=== PATIENT | male | born 1965 | race African-American/Black ===

== ENCOUNTER 2018-02-20 10:51 | Inpatient (IN) ==
[2018-02-20 12:43] LABS: Baso % (Auto) 0.9 % (0.0-2.0); Eos % (Auto) 0.5 % (0.0-4.0); Hematocrit 40.6 % (39.0-51.0); Lymph % (Auto) 28.3 % (9.0-44.0); Mean Corpuscular HGB Conc 34.4 % (32.0-36.0); Mean Corpuscular Hemoglobin 33.6 pg (27.0-34.0); Mean Corpuscular Volume 97.6 fL (80.0-100.0); Mean Platelet Volume 8.5 fL (7.0-11.0); Mono # (Auto) 0.3 th/mm3 (0.0-0.9); Mono % (Auto) 9.4 % (0.0-8.0); Neut # (Auto) 2.2 th/mm3 (1.8-7.7); Neut % (Auto) 60.9 % (16.0-70.0); Platelet Count 128 th/mm3 (150-450); Red Blood Count 4.16 mil/mm3 (4.50-5.90); Red Cell Distribution Width 13.5 % (11.6-17.2); White Blood Count 3.5 th/mm3 (4.0-11.0)
--- NOTE | 2018-02-20 12:52 | ED ---
HPI General Chief Complaint: Psychiatric Symptoms Stated Complaint: Psych eval / SI Time Seen by Provider: 02/20/18 11:08 Source: patient Mode of arrival: ambulatory Limitations: no limitations History of Present Illness HPI Narrative: 52-year-old male presents to the emergency room voluntarily for evaluation of suicidal ideation and depression. Patient states he has constant suicidal ideation and depression and he is constantly fighting with the double. States he is able to block the devil out today. He has a gun and plans to shoot himself. He admits to polysubstance abuse and alcohol abuse. He used to take Wellbutrin but stopped taking it a few months ago. States he has had Debby , crack, and alcohol within the last 24 hours. He was seen yesterday requesting a medication refill for his depression medication and then left AGAINST MEDICAL ADVICE prior to getting his prescription. He reports history of HIV, hypertension, and hepatitis C for which he is noncompliant as well. MD complaint: suicidal ideation and feels depressed Onset (ago): year(s) Duration: intermittent History of same: Yes Relieving factors: none Exacerbating factors: none Context: recent alcohol abuse, recent drug abuse and not taking psychiatric medications Associated psychiatric symptoms: none Associated symptoms: denies other symptoms Treatments prior to arrival: none If self harm: admits thoughts of self harm Related Data Home Medications Medication Instructions Recorded Confirmed amlodipine [Norvasc] 5 mg PO DAILY 02/19/18 02/20/18 bupropion HCl [Wellbutrin SR] 100 mg PO Q12H 02/19/18 02/20/18 Allergies Allergy/AdvReac Type Severity Reaction Status Date / Time Sulfa (Sulfonamide Allergy Hives Verified 02/20/18 11:23 Antibiotics) Review of Systems ROS: all other systems reviewed are negative [facility] Medical History Medical History H/O hepatitis (Acute) Depression (Acute) HTN (hypertension) (Acute) HIV (human immunodeficiency virus infection) (Acute) Social History Social History Substance History: No History of Abuse Smoking Status: Current every day smoker Tobacco Type: Cigarettes How Often Do You Have a Drink Containing Alcohol: 4 or more times a week Recent Travel in [facility] within the Last 8 Weeks: No Recent Out of Country Travel within the Last 8 Weeks: No Substance Abuse Detail Crack/Cocaine: Substance Use Status: Active Route Used Substance Abuse: Inhalation Reason for Use: Get High Marijuana: Substance Use Status: Active Route Used Substance Abuse: Inhalation Reason for Use: Get High 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 Afebrile. Ambulatory. SKIN: Focused skin assessment warm/dry. HEAD: Normocephalic. EYES: No scleral icterus. No injection or drainage. NECK: Supple, trachea midline. No JVD or lymphadenopathy. CARDIOVASCULAR: Regular rate and rhythm without murmurs, gallops, or rubs. RESPIRATORY: Breath sounds equal bilaterally. No accessory muscle use. PSYCHIATRIC: No delusional thought processes. No hallucinations. Flat affect. Agitated. Course Initial Documented Vital Signs Temperature 97.8 F 02/20/18 10:55 Pulse Rate 94 H 02/20/18 10:55 Respiratory Rate 17 02/20/18 10:55 Blood Pressure 143/91 H 02/20/18 10:55 Pulse Oximetry 97 02/20/18 10:55 Last Documented Vital Signs Temperature 98.2 F 02/21/18 05:37 Pulse Rate 58 L 02/21/18 05:37 Respiratory Rate 16 02/21/18 05:37 Blood Pressure 168/98 H 02/21/18 05:37 Pulse Oximetry 100 02/21/18 05:37 Medical Decision Making [facility] Narrative Medical decision making narrative: 52-year-old male presents to the emergency room initially voluntarily for psychiatric evaluation. Upon assessment, patient reports suicidal ideation with plan to shoot himself. He also reports some homicidal ideation. He hears the devil though not at this time. He is noncompliant with his medications and left AGAINST MEDICAL ADVICE yesterday. At this time patient was placed under a Nance act. IV access established basic labs obtained. CBC and CMP are essentially unremarkable. Patient is medically cleared for psychiatric evaluation. Medical Screen Exam Complete: Yes Emergency Medical Condition: Yes Differential Diagnosis Differential Diagnosis: Depression, malingering, suicidal ideation, PTSD Lab Data Result diagrams: 02/20/18 12:20 02/20/18 12:20 Lab Results 02/20/18 02/20/18 02/21/18 Range/Units 12:20 12:20 05:40 WBC 3.5 L (4.0-11.0) th/mm3 RBC 4.16 L (4.50-5.90) mil/mm3 Hgb 14.0 (13.0-17.0) gm/dL Hct 40.6 (39.0-51.0) % MCV 97.6 (80.0-100.0) fL MCH 33.6 (27.0-34.0) pg MCHC 34.4 (32.0-36.0) % RDW 13.5 (11.6-17.2) % Plt Count 128 L (150-450) th/mm3 MPV 8.5 (7.0-11.0) fL Neut % (Auto) 60.9 (16.0-70.0) % Lymph % (Auto) 28.3 (9.0-44.0) % [place] % (Auto) 9.4 H (0.0-8.0) % Eos % (Auto) 0.5 (0.0-4.0) % Baso % (Auto) 0.9 (0.0-2.0) % Neut # (Auto) 2.2 (1.8-7.7) th/mm3 Lymph # (Auto) 1.0 (1.0-4.8) th/mm3 [place] # (Auto) 0.3 (0.0-0.9) th/mm3 Eos # (Auto) 0.0 (0.0-0.4) th/mm3 Baso # (Auto) 0.0 (0.0-0.2) th/mm3 WBC Differential . Differential Comment Auto diff final Sodium 144 (136-145) meq/L Potassium 3.9 (3.5-5.1) meq/L Chloride 109 H (98-107) meq/L Carbon Dioxide 23.4 (21.0-32.0) meq/L Anion Gap 12 (5-15) meq/L BUN 12 (7-18) mg/dL Creatinine 0.98 (0.60-1.30) mg/dL Estimated GFR Greater than 89 (>89) mL/min Random Glucose 120 H (74-106) mg/dL Calcium 7.7 L (8.5-10.1) mg/dL Total Bilirubin 0.5 (0.2-1.0) mg/dL AST 172 H (15-37) U/L ALT 122 H (12-78) U/L Alkaline Phosphatase 63 (45-117) U/L Total Protein 7.8 (6.4-8.2) g/dL Albumin 3.3 L (3.4-5.0) g/dL TSH 0.757 (0.358-3.740) uIU/mL Urine Opiates Screen Neg (Neg) Ur Barbiturates Screen Neg (Neg) Ur Amphetamines Screen Neg (Neg) U Benzodiazepines Scrn Neg (Neg) Urine Cocaine Screen Pos H (Neg) U Cannabinoids Screen Pos H (Neg) Serum Alcohol 122 H (0-5) mg/dL Discharge Plan Discharge Disposition Patient Disposition: 30 Still Patient Discharge Condition Condition: Stable Physicians Team ED Provider: Eva Nance ED Midlevel Provider: Nidia Aguilera Primary Care Provider: UNKNOWN, Rxs /Orders / Referrals /Forms Prescriptions: No Action amlodipine [Norvasc] 5 mg Tablet 5 mg PO DAILY RF: 0 bupropion HCl [Wellbutrin SR] 100 mg Tablet Extended Release 12 Hr 100 mg PO Q12H RF: 0 Status ED Status: Medically Cleared
[2018-02-20 13:06] LABS: Albumin 3.3 g/dL (3.4-5.0); Anion Gap 12 meq/L (5-15); Aspartate Aminotransferase 172 U/L (15-37); Blood Urea Nitrogen 12 mg/dL (7-18); Calcium 7.7 mg/dL (8.5-10.1); Carbon Dioxide 23.4 meq/L (21.0-32.0); Chloride 109 meq/L (98-107); Glomerular Filtration Rate Greater Than 89 mL/min (>89); Glucose,Random 120 mg/dL (74-106); Potassium 3.9 meq/L (3.5-5.1); Sodium 144 meq/L (136-145)
[2018-02-20 13:15] LABS: Alcohol 122 mg/dL (0-5)
[2018-02-20 13:16] LABS: Alanine Aminotransferase 122 U/L (12-78); Alkaline Phosphatase 63 U/L (45-117); Thyroid Stimulating Hormone 0.757 uIU/mL (0.358-3.740); Total Protein 7.8 g/dL (6.4-8.2)
[2018-02-21 06:06] LABS: Amphetamine Screen,Urine Neg (Neg); Barbiturate Screen,Urine Neg (Neg); Cannabinoid Screen,Urine Pos (Neg); Cocaine Screen,Urine Pos (Neg)
[2018-02-21 06:09] LABS: Opiate Screen,Urine Neg (Neg)
--- NOTE | 2018-02-21 13:57 | ED ---
HPI - Psych - General Source: patient Mode of arrival: ambulatory Limitations: no limitations - History of Present Illness MD complaint: suicidal ideation, feels depressed Onset (ago): day(s) Duration: constant, intermittent History of same: Yes Relieving factors: none Exacerbating factors: none, drug use Context: recent alcohol abuse, recent drug abuse, not taking psychiatric medications Associated psychiatric symptoms: depression, suicidal ideation, auditory hallucinations Associated symptoms: denies other symptoms Treatments prior to arrival: none If self harm: admits thoughts of self harm, has plan - General Chief Complaint: Psychiatric Symptoms Stated Complaint: Psych eval / SI Time Seen by Provider: 02/21/18 13:00 - History of Present Illness HPI Narrative: History of Present Illness HPI Narrative: 52-year-old, single, homeless male with history of HIV, hypertension, and hepatitis C, depression, substance use disorder including cocaine, ETOH and cannabis, previous psychiatric hospitalizations, hx of suicide attempt twenty years ago by overdosing, who initially presented voluntarily to ED with complaints of depression, suicidal ideation, voices. He reported that he has a gun and plans to shoot himself. He used to take Wellbutrin but stopped taking it a few months ago. Patient came to the Ed yesterday requesting a refill of Wellbutrin but left AMA prior to getting his prescription. Patient reports he has been noncompliant with his HIV medication as well as his antihypertensive medication. Symptoms have increased over the last several days. EMR is reviewed. No previous contact with [facility] psychiatry Department. Current labs are reviewed. Platelets 128, AST 172, ALT 122. Toxicology is positive for cocaine, cannabinoids. Blood alcohol level is 122. Patient is seen. Alert, oriented, disheveled and malodorous. Affect is blunted. Patient has been isolative and withdrawn. Speech clear, low tone. Answers questions with brief answers and does not elaborate on his answers. Mood depressed with low energy, low appetite, fair sleep pattern, feeling very sad, hopeless and helpless. Suicidal ideation with intent of shooting himself with a gun. Patient tells me he hid the gun before coming to the hospital. Reports auditory hallucinations described as "whispering in my head that I am unable to understand". Attention and concentration are decreased. (Fariha Rodriguez) - Related Data Home Medications Medication Instructions Recorded Confirmed amlodipine [Norvasc] 5 mg PO DAILY 02/19/18 02/20/18 bupropion HCl [Wellbutrin SR] 100 mg PO Q12H 02/19/18 02/20/18 Allergies Allergy/AdvReac Type Severity Reaction Status Date / Time Sulfa (Sulfonamide Allergy Hives Verified 02/20/18 11:23 Antibiotics) [facility] - History History Provided By: Patient - Medical History Medical History: Medical History (Last Updated 02/20/18 @ 11:24 by Magda Peterson) H/O hepatitis (Acute) Depression (Acute) HTN (hypertension) (Acute) HIV (human immunodeficiency virus infection) (Acute) - Tobacco History Tobacco Use In Past 30 Days: No Smoking Status: Current every day smoker Tobacco Type: Cigarettes - Alcohol History How Often Do You Have a Drink Containing Alcohol: 4 or more times a week - Substance Use History Substance History: No History of Abuse - Substance Use Type Crack/Cocaine Status: Active Route Used: Inhalation Reason for Use: Get High Marijuana Status: Active Route Used: Inhalation 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: Active Reason for Use: Get High Opiates Status: Active Route Used: Inhalation Reason for Use: Get High Other Type: POLYSUBSTANCE Status: Active Route Used: By Mouth, Inhalation, Intramuscular, Intravenously Reason for Use: Get High Comment: PATIENT STATES, "I DO WHATEVER I CAN OFTEN I CAN." - Travel History Recent Travel in the [facility] Within the Last 8 Weeks: No Recent Travel Out of the Country Within the Last 8 Weeks: No - Immunization History Tetanus Immunization: Unsure Hx Influenza Vaccine This Season: No Psychiatric History - Psychiatric History Psychiatric Treatment History: History of Psychiatric Treatment, History of Hospitalization in a Psychiatric Facility History of Inpatient Treatment: Yes Firearms in Home: Yes - Psychiatric History Reports began receiving psychiatric treatment approximately 30 years ago. Multiple psychiatric hospitalizations with the last being in [place] couple of months ago. He has been also admitted to a hospital in [place]. One previous suicide attempt 20 years ago by overdose. (Fariha Rodriguez) Physical Exam - General Limitations: no limitations Mental Status Examination Appearance: Disheveled, Malodorous Consciousness: Alert Orientation: x4 Motor Activity: Normal gait Speech: Slow Language: Adequate Fund of Knowledge: Adequate Attention and Concentration: Inadequate Memory: Unremarkable Mood: Sad Affect: Blunt Thought Process & Associations: Intact, Goal directed Thought Content: Hallucinations Hallucination Type: Auditory Delusion Type: None Suicidal Ideation: Yes Suicidal Plan: Yes Suicidal Intention: Yes Homicidal Ideation: No Homicidal Plan: No Homicidal Intention: No Insight: Fair Judgment: Impulsive Initial Documented Vital Signs Temperature 97.8 F 02/20/18 10:55 Pulse Rate 94 H 02/20/18 10:55 Respiratory Rate 17 02/20/18 10:55 Blood Pressure 143/91 H 02/20/18 10:55 Pulse Oximetry 97 02/20/18 10:55 Last Documented Vital Signs Temperature 98.2 F 02/21/18 05:37 Pulse Rate 58 L 02/21/18 05:37 Respiratory Rate 16 02/21/18 05:37 Blood Pressure 168/98 H 02/21/18 05:37 Pulse Oximetry 100 02/21/18 05:37 MDM - Psych - Diagnosis (1) Depressive disorder Status: Acute (2) Substance induced mood disorder Status: Acute (3) Substance abuse Status: Acute - Lab Data Result diagrams: 02/20/18 12:20 02/20/18 12:20 - MDM Narrative Medical decision making narrative: 52-year-old male with history of depression, psychosis, substance use disorder, multiple medical illnesses, noncompliant with psychiatric and medical treatment plan, under an involuntary status after he presented to the hospital and reported suicidal ideation with intent to shoot himself with a gun. Patient also reported feeling like he is in a struggle with the devil and auditory hallucinations. Patient unable to be placed on Karson Marchman list due to medical issues including a low platelet count. Patient at this time requires inpatient psychiatric treatment for further evaluation, safety and stabilization. Will order hospitalist consult for medical follow up. (Fariha Rodriguez) - Lab Data Lab Results 02/20/18 02/20/18 02/21/18 Range/Units 12:20 12:20 05:40 WBC 3.5 L (4.0-11.0) th/mm3 RBC 4.16 L (4.50-5.90) mil/mm3 Hgb 14.0 (13.0-17.0) gm/dL Hct 40.6 (39.0-51.0) % MCV 97.6 (80.0-100.0) fL MCH 33.6 (27.0-34.0) pg MCHC 34.4 (32.0-36.0) % RDW 13.5 (11.6-17.2) % Plt Count 128 L (150-450) th/mm3 MPV 8.5 (7.0-11.0) fL Neut % (Auto) 60.9 (16.0-70.0) % Lymph % (Auto) 28.3 (9.0-44.0) % [place] % (Auto) 9.4 H (0.0-8.0) % Eos % (Auto) 0.5 (0.0-4.0) % Baso % (Auto) 0.9 (0.0-2.0) % Neut # (Auto) 2.2 (1.8-7.7) th/mm3 Lymph # (Auto) 1.0 (1.0-4.8) th/mm3 [place] # (Auto) 0.3 (0.0-0.9) th/mm3 Eos # (Auto) 0.0 (0.0-0.4) th/mm3 Baso # (Auto) 0.0 (0.0-0.2) th/mm3 WBC Differential . Differential Comment Auto diff final Sodium 144 (136-145) meq/L Potassium 3.9 (3.5-5.1) meq/L Chloride 109 H (98-107) meq/L Carbon Dioxide 23.4 (21.0-32.0) meq/L Anion Gap 12 (5-15) meq/L BUN 12 (7-18) mg/dL Creatinine 0.98 (0.60-1.30) mg/dL Estimated GFR Greater than 89 (>89) mL/min Random Glucose 120 H (74-106) mg/dL Calcium 7.7 L (8.5-10.1) mg/dL Total Bilirubin 0.5 (0.2-1.0) mg/dL AST 172 H (15-37) U/L ALT 122 H (12-78) U/L Alkaline Phosphatase 63 (45-117) U/L Total Protein 7.8 (6.4-8.2) g/dL Albumin 3.3 L (3.4-5.0) g/dL TSH 0.757 (0.358-3.740) uIU/mL Urine Opiates Screen Neg (Neg) Ur Barbiturates Screen Neg (Neg) Ur Amphetamines Screen Neg (Neg) U Benzodiazepines Scrn Neg (Neg) Urine Cocaine Screen Pos H (Neg) U Cannabinoids Screen Pos H (Neg) Serum Alcohol 122 H (0-5) mg/dL
[2018-02-21] MEDS ORDERED: LORazepam 1 MG Tablet PO PRN (14:22)
[2018-02-21] MEDS ORDERED: Haloperidol Inj 5 MG/ML Ampul IM PRN (14:22)
[2018-02-21] MEDS ORDERED: Aluminum/Magnesium/Simethacone Susp 30 ML UDC PO PRN (18:08)
[2018-02-21] MEDS ORDERED: Acetaminophen 325 MG Tablet PO PRN (18:08)
[2018-02-22] MEDS: amLODIPine 5 MG Tablet PO SCH ×2 (01:04→08:26)
[2018-02-22 10:05] LABS: Anion Gap 6 meq/L (5-15); Blood Urea Nitrogen 13 mg/dL (7-18); Calcium 7.9 mg/dL (8.5-10.1); Carbon Dioxide 28.9 meq/L (21.0-32.0); Chloride 107 meq/L (98-107); Cholesterol 130 mg/dL (120-200); Glomerular Filtration Rate Greater Than 89 mL/min (>89); Glucose,Random 149 mg/dL (74-106); Potassium 3.7 meq/L (3.5-5.1); Sodium 142 meq/L (136-145)
[2018-02-22 10:07] LABS: Chol/HDL Ratio 2.09 Ratio; HDL Cholesterol 62.1 mg/dL (40.0-60.0); LDL Cholesterol,Calculated 35 mg/dL (0-99); Triglycerides 165 mg/dL (42-150)
--- NOTE | 2018-02-22 11:35 | P.CONIM ---
History of Present Illness Primary Care Provider: UNKNOWN History of Present Illness: 52-year-old male with a history of HIV, hypertension, hepatitis C, cocaine, marijuana, heavy alcohol use depression who is here for suicidal ideation. Patient says he is feeling generally unwell, however says this is because he is depressed. He does report 15 pound unintentional weight loss over the past year she reports not eating enough food.. Patient says he has not taken any of his HIV medications or blood pressure medications over the past year. He reports alcohol binging with drinking a 12 pack of beer about twice a week. He denies any fevers, chills, chest pain, shortness of breath, nausea, vomiting, cough, diarrhea, constipation. Review of Systems All other systems reviewed negative except as stated in HPI PMFSH - History History Provided By: Patient - Medical History Medical History: Medical History (Last Updated 02/20/18 @ 11:24 by Magda Peterson) H/O hepatitis (Acute) Depression (Acute) HTN (hypertension) (Acute) HIV (human immunodeficiency virus infection) (Acute) - Surgical History Surgical History: Surgical History (Last Updated 02/22/18 @ 11:23 by Kartik Kerr MD) No pertinent past surgical history - Family History Family History: Family History (Last Updated 02/22/18 @ 11:23 by Kartik Kerr MD) Father Hypertension Mother Hypertension - Tobacco History Tobacco Use In Past 30 Days: No Smoking Status: Current every day smoker Tobacco Type: Cigarettes - Alcohol History How Often Do You Have a Drink Containing Alcohol: 4 or more times a week - Substance Use History Substance History: No History of Abuse - Substance Use Type Crack/Cocaine Status: Active Route Used: Inhalation Reason for Use: Get High Marijuana Status: Active Route Used: 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 Reason for Use: Get High Opiates Status: Active Route Used: Inhalation Reason for Use: Get High Other Type: POLYSUBSTANCE Status: Active Route Used: By Mouth, Inhalation, Intramuscular, Intravenously Reason for Use: Get High Comment: PATIENT STATES, "I DO WHATEVER I CAN OFTEN I CAN." - Travel History Recent Travel in the [facility] Within the Last 8 Weeks: No Recent Travel Out of the Country Within the Last 8 Weeks: No - Immunization History Tetanus Immunization: Unsure Hx Influenza Vaccine This Season: No Medications and Allergies Active Medications: Active Medications Acetaminophen (Tylenol) 650 mg PO Q4H PRN PRN Reason: Pain 1-5 or Temp >101F Al Hydrox/Mg Hydrox/Simethicone (Mag-Al Plus Susp Liq) 30 ml PO Q6H PRN PRN Reason: DYSPEPSIA Al Hydroxide/Mg Hydroxide (Milk Of Magnesia Liq) 30 ml PO DAILY PRN PRN Reason: CONSTIPATION Amlodipine Besylate (Norvasc) 5 mg PO DAILY [facility] Last Admin: 02/22/18 08:26 Dose: 5 mg Diphenhydramine HCl (Benadryl) 50 mg PO Q6H PRN PRN Reason: For mild anxiety and/or EPS Diphenhydramine HCl (Benadryl Inj) 50 mg IM Q6H PRN PRN Reason: For mild anxiety and/or EPS Diphenhydramine HCl (Benadryl Inj) 50 mg IM HS PRN PRN Reason: INSOMNIA Diphenhydramine HCl (Benadryl) 50 mg PO HS PRN PRN Reason: INSOMNIA Flumazenil (Romazecon Inj) 0.2 mg IV.PUSH Q1M PRN PRN Reason: OVERSEDATION Haloperidol Lactate (Haldol Inj) 1 mg IM Q15M PRN PRN Reason: for severe agitation Hydroxyzine HCl (Atarax) 50 mg PO Q6H PRN PRN Reason: ANXIETY Lorazepam (Ativan) 1 mg PO Q4H PRN PRN Reason: for CIWA 8-10 Lorazepam (Ativan) 2 mg PO Q2H PRN PRN Reason: for CIWA 11-14 Lorazepam (Ativan Inj) 2 mg IM Q2H PRN PRN Reason: for CIWA 11-14 Lorazepam (Ativan Inj) 2 mg IM Q1H PRN PRN Reason: for CIWA 15-20 Lorazepam (Ativan Inj) 2 mg IM Q15M PRN PRN Reason: for CIWA > 20 Lorazepam (Ativan Inj) 1 mg IM Q4H PRN PRN Reason: for CIWA 8-10 Nicotine (Habitrol 21 Mg Patch.24 Hr) 1 patch T-DERMAL DAILY [facility] Last Admin: 02/22/18 08:59 Dose: Not Given Patch Removal (Remove Old Patch) 1 each T-DERMAL HS [facility] Last Admin: 02/22/18 01:03 Dose: Not Given Allergies Allergy/AdvReac Type Severity Reaction Status Date / Time Sulfa (Sulfonamide Allergy Hives Verified 02/20/18 11:23 Antibiotics) Home Medications Medication Instructions Recorded Confirmed Type amlodipine [Norvasc] 5 mg PO DAILY 02/19/18 02/20/18 History bupropion HCl [Wellbutrin SR] 100 mg PO Q12H 02/19/18 02/20/18 History Exam Vital signs: Vital Signs 02/22/18 06:02 02/22/18 11:01 Temperature 97.9 F Pulse Rate 71 51 L Respiratory Rate 18 18 Blood Pressure 139/105 H 139/90 Pulse Oximetry 99 Narrative: GENERAL: Lying in bed sleeping. Wakes up for exam. SKIN: Warm and dry. HEAD: Atraumatic. Normocephalic. EYES: Pupils equal and round. No scleral icterus. No injection or drainage. ENT: No nasal bleeding or discharge. Mucous membranes pink and moist. NECK: Trachea midline. No JVD. CARDIOVASCULAR: Regular rate and rhythm. RESPIRATORY: No accessory muscle use. Clear to auscultation. Breath sounds equal bilaterally. GASTROINTESTINAL: Abdomen soft, non-tender, nondistended. Hepatic and splenic margins not palpable. MUSCULOSKELETAL: Extremities without clubbing, cyanosis, or edema. No obvious deformities. NEUROLOGICAL: Awake and alert. No obvious cranial nerve deficits. Motor grossly within normal limits. Five out of 5 muscle strength in the arms and legs. Normal speech. Results - Labs CBC & Chem 7: 02/20/18 12:20 02/22/18 09:23 Labs: Laboratory Results - last 24 hr 02/22/18 02/22/18 09:23 09:23 Sodium 142 Potassium 3.7 Chloride 107 Carbon Dioxide 28.9 Anion Gap 6 BUN 13 Creatinine 0.84 Estimated GFR Greater than 89 Random Glucose 149 H Calcium 7.9 L Total Creatine Kinase 172 Triglycerides 165 H Cholesterol 130 LDL Cholesterol, Calc 35 HDL Cholesterol 62.1 H Cholesterol/HDL Ratio 2.09 Assessment and Plan - Plan //HIV //Leukopenia -Apparently HIV diagnosed in the . -White count 3.5 on admission. -No signs of infection. = Check CD4 count. Recheck white blood cell count. //Transaminitis = AST 172, ALT 122 on admission. = Likely secondary to history of hepatitis C as well as alcoholism CK normal. We will check INR. Will check liver ultrasound as well as hepatitis panel. //Hypertension. Systolic blood pressures in the 160s. Improved after starting amlodipine. Continue to monitor. //Hyperglycemia. Glucose 149. Could be secondary to cocaine. A1c is pending. //Chronic alcoholism Patient denies withdrawal. We will watch for withdrawal, and start Ativan if necessary. //Tobacco abuse. Cessation counseling provided. //Cocaine and cannabis use Cessation counseling provided. Discussed Condition With: Patient, nurse Discharge Planning: We will continue to follow.
[2018-02-22 13:43] LABS: Hemoglobin A1c 5.3 % (4.3-6.0)
--- NOTE | 2018-02-22 14:23 | ECG ---
Date Performed: 02/21/2018 Time Performed: 21:38:37 PTAGE: 52 years EKG: Sinus rhythm ST ELEVATION CONSIDER REPOLARIZATION ABNORMALITY VS PERICARDITIS INJURY PATTERN MOST LIKELY CLINICAL CORRELATION RECOMMENDED BORDERLINE ECG NO PREVIOUS TRACING DOCTOR: Hernando Mena Interpretating Date/Time 02/22/2018 14:22:11
[2018-02-22 14:56] LABS: Albumin 2.7 g/dL (3.4-5.0); Total Protein 7.1 g/dL (6.4-8.2)
--- NOTE | 2018-02-22 19:06 | P.HPPSY ---
Provisional Diagnosis Admission Date: February 21, 2018 14:22 [place] I.: Major depressive disorder, severe with psychotic features, r/o substance induced mood disorder, r/o schizoaffective disorder Competence Certification of Person's Competence To Provide Express and Informed Consent I have personally examined Mc Amin Jr, a person being served at [facility] on, February 22, 2018 1856. Express and informed consent means consent voluntarily given in writing, by a competent person, after sufficient explanation and disclosure of the subject matter involved to enable the person to make a knowing and willful decision without any element of force, fraud, deceit, duress, or other form of constraint or coercion. This person is 18 years of age or older, is not now known to be incompetent to consent to treatment with a guardian advocate, and does not have a health care surrogate or proxy currently making medical treatment decisions. I have found this person to be one of the following: [xxx] Competent to provide express and informed consent, as defined above, for voluntary admission to this facility and is competent to provide express and informed consent for treatment. He/she has the consistent capacity to make well reasoned, willful, and knowing decisions concerning his or her medical or mental health treatment. The person fully and consistently understands the purpose of the admission for examination/placement and is fully capable of personally exercising all rights assured under [place] Incompetent to provide express and informed consent to voluntary admission, and this is incompetent to provide express and informed consent to treatment. The person must be transferred to involuntary status and a petition for a guardian advocate filed with the Circuit Court. [] Refusing to provide express and informed consent to voluntary admission but is competent to provide express and informed consent for treatment. The person must be discharged or transferred to involuntary status. Form shall be completed within 24 hours of a person's arrival at the receiving facility and filed in the clinical record of each person: 1. Admitted on a voluntary basis 2. Permitted to provide express and informed consent to his/her own treatment 3. Allowed to transfer from involuntary to voluntary status 4. Prior to permitting a person to consent to his or her own treatment after having been previously found incompetent to consent to treatment. History of Present Illness Capacity: Has capacity History of Present Illness: Patient is a 52-year-old -Citizen Of [place] man, single, no children, domiciled alone, unemployed on SSI, with a past psychiatric history of depression, multiple psychiatric admissions, one remote suicide attempt, reports history of self-injurious behavior, with a substance use history of polysubstance use ( Debby, crack, THC, alcohol) who presented to the ED voluntarily for evaluation of depression and suicidal ideation with plan to shoot himself patient was admitted to the inpatient psychiatry for further evaluation and management. Patient was found sitting in day room noted calm and superficially cooperative with interview today. Patient noted to be somewhat irritable throughout interview. Patient state he does not feel well, reports for the past 2 weeks even having low energy, and concentration along with feeling "agitated" with no changes sleep or appetite but noticing having worsening depression for the past couple of days along with auditory hallucinations and visual hallucinations which she believes are secondary to his recent drug use. Patient reports also having suicidal ideations for the past couple of days but denying any homicidal ideation at this time. When asked about factors that contribute to distress and depression he states "I do not know". Patient states feeling interested in engaging in rehabilitation program or sober living facility. Family psychiatric history: Patient denies Past psychiatric history: Previous psychiatric diagnoses of depression, multiple psychiatric admissions, one remote suicide attempt 20 years ago via overdose, reports self-injurious behavior unspecified. Patient denies history of abuse. Patient denies having any outpatient mental provider last time being 1 year ago with previous medication trials include Risperdal, Wellbutrin and quetiapine. Substance use history: Patient reports tobacco use, alcohol use 1-2 times per week along with marijuana and crack cocaine use. When asked about other drug use patient states "I do not know". Past medical history: Hypertension, hep C, HIV Allergies: Sulfas Social history: Single, no children, domiciled alone, but on SSI, patient reports being born and raised in [place]. - Inpatient Certification I certify that the inpatient services were ordered in accordance with Medicare regulations governing the order. This includes certification that hospital inpatient services are reasonable and necessary and in the case of services not specified as inpatient-only under 42 CFR 419.22(n), that they are appropriately provided as inpatient services in accordance to with the 2-midnight benchmark under 43 CFR 412.3(e) I certify that inpatient psychiatric hospital services are medically necessary. Evaluation and treatment and/or diagnostic testing are expected to improve the patient's condition. The patient needs on a daily basis, active treatment furnished directly by or requiring the supervision of inpatient psychiatric facility personnel. Estimated Total Length of Stay (Days): 7 Plans for Post Hospital Care: Not yet determined Review of Systems All other systems reviewed negative except as stated in HPI [facility] - History History Provided By: Patient, Medical Record - Medical History Medical History: Medical History (Last Updated 02/20/18 @ 11:24 by Magda Peterson) H/O hepatitis (Acute) Depression (Acute) HTN (hypertension) (Acute) HIV (human immunodeficiency virus infection) (Acute) - Surgical History Surgical History: Surgical History (Last Updated 02/22/18 @ 11:23 by Kartik Kerr MD) No pertinent past surgical history - Family History Family History: Family History (Last Updated 02/22/18 @ 11:23 by Kartik Kerr MD) Father Hypertension Mother Hypertension - Tobacco History Tobacco Use In Past 30 Days: No Smoking Status: Current every day smoker Tobacco Type: Cigarettes - Alcohol History How Often Do You Have a Drink Containing Alcohol: 4 or more times a week - Substance Use History Substance History: No History of Abuse - Substance Use Type Crack/Cocaine Status: Active Route Used: Inhalation Frequency: las two days Last Used: two days ago Reason for Use: Get High Marijuana Status: Active Route Used: Inhalation Frequency: last two days Last Used: last two days Reason for Use: Get High [employer] Status: Active Route Used: By Mouth Frequency: when i can Last Used: two days ago Reason for Use: Get High Opiates Status: Active Route Used: Inhalation Frequency: when i can Last Used: two days ago Reason for Use: Get High Other Type: POLYSUBSTANCE Status: Active Route Used: By Mouth, Inhalation, Intramuscular, Intravenously Frequency: when i can Last Used: two days ago Reason for Use: Get High Comment: PATIENT STATES, "I DO WHATEVER I CAN OFTEN I CAN." - Travel History Recent Travel in the [facility] Within the Last 8 Weeks: No Recent Travel Out of the Country Within the Last 8 Weeks: No - Immunization History Tetanus Immunization: Unsure Hx Influenza Vaccine This Season: No Quality Measures - Psychiatric History Psychological trauma history: denies Violence risk to others in the last 6 months: low Violence risk to self in the last 6 months: elevated - Substance Abuse History Drug or alcohol use in the past 12 months: see HPI - Patient Strengths Patient's strengths (minimum of 2): verbal and communicative Medications and Allergies Active Medications: Active Medications Acetaminophen (Tylenol) 650 mg PO Q4H PRN PRN Reason: Pain 1-5 or Temp >101F Al Hydrox/Mg Hydrox/Simethicone (Mag-Al Plus Susp Liq) 30 ml PO Q6H PRN PRN Reason: DYSPEPSIA Al Hydroxide/Mg Hydroxide (Milk Of Magnesia Liq) 30 ml PO DAILY PRN PRN Reason: CONSTIPATION Amlodipine Besylate (Norvasc) 5 mg PO DAILY RACHELE Last Admin: 02/22/18 08:26 Dose: 5 mg Bupropion HCl (Wellbutrin Sr) 100 mg PO BID RACHELE Diphenhydramine HCl (Benadryl) 50 mg PO Q6H PRN PRN Reason: For mild anxiety and/or EPS Diphenhydramine HCl (Benadryl Inj) 50 mg IM Q6H PRN PRN Reason: For mild anxiety and/or EPS Diphenhydramine HCl (Benadryl Inj) 50 mg IM HS PRN PRN Reason: INSOMNIA Diphenhydramine HCl (Benadryl) 50 mg PO HS PRN PRN Reason: INSOMNIA Flumazenil (Romazecon Inj) 0.2 mg IV.PUSH Q1M PRN PRN Reason: OVERSEDATION Haloperidol Lactate (Haldol Inj) 1 mg IM Q15M PRN PRN Reason: for severe agitation Hydroxyzine HCl (Atarax) 50 mg PO Q6H PRN PRN Reason: ANXIETY Last Admin: 02/22/18 18:33 Dose: 50 mg Lorazepam (Ativan) 1 mg PO Q4H PRN PRN Reason: for CIWA 8-10 Lorazepam (Ativan) 2 mg PO Q2H PRN PRN Reason: for CIWA 11-14 Lorazepam (Ativan Inj) 2 mg IM Q2H PRN PRN Reason: for CIWA 11-14 Lorazepam (Ativan Inj) 2 mg IM Q1H PRN PRN Reason: for CIWA 15-20 Lorazepam (Ativan Inj) 2 mg IM Q15M PRN PRN Reason: for CIWA > 20 Lorazepam (Ativan Inj) 1 mg IM Q4H PRN PRN Reason: for CIWA 8-10 Nicotine (Habitrol 21 Mg Patch.24 Hr) 1 patch T-DERMAL DAILY [facility] Last Admin: 02/22/18 08:59 Dose: Not Given Patch Removal (Remove Old Patch) 1 each T-DERMAL HS [facility] Last Admin: 02/22/18 01:03 Dose: Not Given Risperidone (Risperdal) 1 mg PO BID [facility] Allergies Allergy/AdvReac Type Severity Reaction Status Date / Time Sulfa (Sulfonamide Allergy Hives Verified 02/20/18 11:23 Antibiotics) Home Medications Medication Instructions Recorded Confirmed Type amlodipine [Norvasc] 5 mg PO DAILY 02/19/18 02/20/18 History bupropion HCl [Wellbutrin SR] 100 mg PO Q12H 02/19/18 02/20/18 History Results - Labs CBC & Chem 7: 02/20/18 12:20 02/22/18 09:23 Labs: Laboratory Results - last 24 hr 02/22/18 02/22/18 02/22/18 09:23 09:23 09:23 Sodium 142 Potassium 3.7 Chloride 107 Carbon Dioxide 28.9 Anion Gap 6 BUN 13 Creatinine 0.84 Estimated GFR Greater than 89 Random Glucose 149 H Hemoglobin A1c 5.3 Calcium 7.9 L Total Bilirubin Direct Bilirubin Indirect Bilirubin AST ALT Alkaline Phosphatase Total Creatine Kinase 172 Total Protein Albumin Triglycerides 165 H Cholesterol 130 LDL Cholesterol, Calc 35 HDL Cholesterol 62.1 H Cholesterol/HDL Ratio 2.09 02/22/18 09:23 Sodium Potassium Chloride Carbon Dioxide Anion Gap BUN Creatinine Estimated GFR Random Glucose Hemoglobin A1c Calcium Total Bilirubin 0.9 Direct Bilirubin 0.4 H Indirect Bilirubin 0.5 AST 254 H ALT 170 H Alkaline Phosphatase 65 Total Creatine Kinase Total Protein 7.1 D Albumin 2.7 L D Triglycerides Cholesterol LDL Cholesterol, Calc HDL Cholesterol Cholesterol/HDL Ratio Exam Vital signs: Vital Signs 02/22/18 06:02 02/22/18 11:01 02/22/18 17:35 Temperature 97.9 F 97.7 F Pulse Rate 71 51 L 72 Respiratory Rate 18 18 17 Blood Pressure 139/105 H 139/90 141/82 H Pulse Oximetry 99 98 - Constitutional no acute distress, cooperative Mental Status Examination Appearance: Disheveled, Malodorous Consciousness: Alert Orientation: x4 Motor Activity: Normal gait Speech: Slow Language: Adequate Fund of Knowledge: Adequate Attention and Concentration: Inadequate Memory: Unremarkable Mood: Sad Affect: Blunt Thought Process & Associations: Intact, Goal directed Thought Content: Hallucinations Hallucination Type: Auditory Delusion Type: None Suicidal Ideation: Yes Suicidal Plan: Yes Suicidal Intention: Yes Homicidal Ideation: No Homicidal Plan: No Homicidal Intention: No Insight: Fair Judgment: Impulsive Assessment and Plan - Assessment (1) Depressive disorder Code(s): F32.9 - Major depressive disorder, single episode, unspecified Status : Acute (2) Substance induced mood disorder Code(s): F19.94 - Other psychoactive substance use, unspecified with psychoactive substance-induced mood disorder Status: Acute (3) Substance abuse Code(s): F19.10 - Other psychoactive substance abuse, uncomplicated Status: Acute - Plan Plan: Estimated LOS: [] days Patient is a 52-year-old -Citizen Of [place] man, single, no children, domiciled alone, unemployed on SSI, with a past psychiatric history of depression, multiple psychiatric admissions, one remote suicide attempt, reports history of self-injurious behavior, with a substance use history of polysubstance use ( Debby, crack, THC, alcohol) who presented to the ED voluntarily for evaluation of depression and suicidal ideation with plan to shoot himself patient was admitted to the inpatient psychiatry for further evaluation and management. Patient noted to be dysphoric, endorsing depressed mood along with suicide ideations and auditory hallucinations which she cannot elaborate. We will start patient on risperidone 1 mg p.o. twice daily for psychosis, patient to continue bupropion SR 100 mg p.o. twice daily for depression, hospitalist input appreciated. Continue recommendations as her prior medical team. We will continue to monitor mood and behavior. Patient will be admitted under voluntary status and has capacity to consent for treatment. Discharge planning a progress. Justification for Continued Inpatient Stay: At risk of further decompensation a low level of care.
[2018-02-22] MEDS: buPROPion 100 MG ER 12 HR Tablet PO SCH (20:38)
[2018-02-23] MEDS: amLODIPine 5 MG Tablet PO SCH (09:34)
[2018-02-23] MEDS: buPROPion 100 MG ER 12 HR Tablet PO SCH ×2 (09:34→21:35)
[2018-02-23 10:21] LABS: Baso % (Auto) 1.3 % (0.0-2.0); Eos # (Auto) 0.2 th/mm3 (0.0-0.4); Eos % (Auto) 6.6 % (0.0-4.0); Hematocrit 43.1 % (39.0-51.0); Hemoglobin 14.4 gm/dL (13.0-17.0); Mean Corpuscular HGB Conc 33.4 % (32.0-36.0); Mean Corpuscular Volume 98.6 fL (80.0-100.0); Mean Platelet Volume 9.3 fL (7.0-11.0); Mono # (Auto) 0.3 th/mm3 (0.0-0.9); Neut # (Auto) 0.9 th/mm3 (1.8-7.7); Neut % (Auto) 39.1 % (16.0-70.0); Platelet Count 71 th/mm3 (150-450); Red Blood Count 4.37 mil/mm3 (4.50-5.90); Red Cell Distribution Width 13.1 % (11.6-17.2); White Blood Count 2.4 th/mm3 (4.0-11.0)
[2018-02-23 10:24] LABS: INR 1.1 Ratio; Prothrombin Time 11.4 sec (9.8-11.6)
[2018-02-23 11:34] LABS: Hepatitits B Surface Antigen Nonreactive (Nonreactive)
--- NOTE | 2018-02-23 11:44 | P.PNPSY ---
Subjective Remarks: Reviewed electronic medical records and discussed case with staff. Follow-up was conducted in patient's room with margaret Fisheror present. Patient was found sleeping on his bed in no apparent distress. This has feeling states he is "trying to make it". States that his been sleeping off and on his appetite' s been fair. When asked about his mood he states it has been "up and down". He relays to Phillip that he would like to get back to [facility]. Mental Status Examination Appearance: Disheveled, Malodorous Consciousness: Alert Orientation: x4 Motor Activity: Normal gait Speech: Slow Language: Adequate Fund of Knowledge: Adequate Attention and Concentration: Inadequate Memory: Unremarkable Mood: Sad Affect: Blunt Thought Process & Associations: Intact, Goal directed Thought Content: Hallucinations Hallucination Type: Auditory Delusion Type: None Suicidal Ideation: Yes Suicidal Plan: Yes Suicidal Intention: Yes Homicidal Ideation: No Homicidal Plan: No Homicidal Intention: No Insight: Fair Judgment: Impulsive Assessment and Plan - Assessment (1) Substance induced mood disorder Code(s): F19.94 - Other psychoactive substance use, unspecified with psychoactive substance-induced mood disorder Status: Acute - Plan Plan: Patient will be reevaluated Sunday by the attending psychiatrist. Continue with current treatment plan. Justification for Continued Inpatient Stay: Moving this patient to a less restrictive environment would likely result in decompensation.
[2018-02-23 12:03] LABS: Eosinophils 7 % (0-4); Lymphocytes 52 % (9-44); Monocytes 8 % (0-8)
[2018-02-23 12:04] LABS: Platelet Morphology Normal (Normal)
[2018-02-23 12:19] LABS: Hepatitis A IgM Antibody Nonreactive (Nonreactive)
--- NOTE | 2018-02-23 14:03 | P.PN ---
Subjective Interval history: Follow-up visit HIV, HTN, hep C, polysubstance abuse, heavy alcohol use, depression. Patient seen and examined today. Reports he is supposed to have an ultrasound this morning but has not eaten breakfast and he ate breakfast and missed his ultrasound. He was waiting for the ultrasound to come back in the afternoon but states they are going to it for tomorrow morning. Patient states that he is generally unwell since he has the virus, HIV and hep C. States that he has not been taking medications for HIV virus but has in the past. States that "I have been living with this for a long time, and I am used to it." Otherwise, Denies pain and discomfort. Denies SOB/ dyspnea. Denies chest pain , palpitations, headaches, dizziness. Denies fevers, chills, n/v/d. Denies dysuria. Physical Exam Vital signs: Vital Signs 02/22/18 17:35 02/23/18 06:00 Temperature 97.7 F 98.4 F Pulse Rate 72 62 Respiratory Rate 17 17 Blood Pressure 141/82 H 137/88 Pulse Oximetry 98 100 Narrative: GENERAL: This is a well-nourished, well-developed patient, in no apparent distress. SKIN: Warm and dry. HEENT: Normocephalic. Pupils equal round and reactive. Nose without bleeding. Airway patent. Left periorbital area ecchymosis. NECK: Trachea midline. No JVD. Supple. CARDIOVASCULAR: Regular rate and rhythm without murmurs, gallops, or rubs. RESPIRATORY: Diminished bases. No wheezes, rales, or rhonchi. GASTROINTESTINAL: Abdomen soft, non-tender, nondistended. Bowel Sounds normoactive x4. MUSCULOSKELETAL: Extremities without clubbing, cyanosis, or edema. NEUROLOGICAL: Awake and alert. No focal neuro deficit. Moves all extremities. Normal speech. Results - Labs CBC & Chem 7: 02/23/18 09:57 02/22/18 09:23 Laboratory Results - last 24 hr 02/22/18 02/22/18 02/23/18 09:23 09:23 09:57 WBC RBC Hgb Hct MCV MCH MCHC RDW Plt Count MPV Prelim Diff (Auto) Neut % (Auto) Lymph % (Auto) Holmes % (Auto) Eos % (Auto) Baso % (Auto) Neut # (Auto) Lymph # (Auto) Holmes # (Auto) Eos # (Auto) Baso # (Auto) WBC Differential Seg Neuts % (Manual) Lymphocytes % (Manual) Monocytes % (Manual) Eosinophils % (Manual) Abs Neuts (Manual) Differential Comment Platelet Estimate Platelet Morphology PT INR Hemoglobin A1c 5.3 Total Bilirubin 0.9 Direct Bilirubin 0.4 H Indirect Bilirubin 0.5 AST 254 H ALT 170 H Alkaline Phosphatase 65 Total Protein 7.1 D Albumin 2.7 L D Hepatitis A IgM Ab Nonreactive Hep Bs Antigen Nonreactive Hep B Core IgM Ab Nonreactive Hep C IgG Ab Reactive H 02/23/18 02/23/18 09:57 09:57 WBC 2.4 L RBC 4.37 L Hgb 14.4 Hct 43.1 MCV 98.6 MCH 33.0 MCHC 33.4 RDW 13.1 Plt Count 71 L D MPV 9.3 Prelim Diff (Auto) Slide review pending Neut % (Auto) 39.1 Lymph % (Auto) 42.0 Holmes % (Auto) 11.0 H Eos % (Auto) 6.6 H Baso % (Auto) 1.3 Neut # (Auto) 0.9 L Lymph # (Auto) 1.0 Holmes # (Auto) 0.3 Eos # (Auto) 0.2 Baso # (Auto) 0.0 WBC Differential Manual diff final Seg Neuts % (Manual) 33 Lymphocytes % (Manual) 52 H Monocytes % (Manual) 8 Eosinophils % (Manual) 7 H Abs Neuts (Manual) 0.8 L Differential Comment . Platelet Estimate Low L Platelet Morphology Normal PT 11.4 INR 1.1 Hemoglobin A1c Total Bilirubin Direct Bilirubin Indirect Bilirubin AST ALT Alkaline Phosphatase Total Protein Albumin Hepatitis A IgM Ab Hep Bs Antigen Hep B Core IgM Ab Hep C IgG Ab Assessment and Plan - Plan 52-year-old male with a history of HIV, hypertension, hepatitis C, cocaine, marijuana, heavy alcohol use depression who is admitted for suicidal ideation. He is on inpatient psychiatry for further evaluation. Consulted for assistance with medical management. HIV Leukopenia -HIV diagnosed in the 1980s. He was with HIV medications before but not taking anything now -White count 3.5 on admission. -No signs of infection. -Pending CD4 count. Follow white blood cell count. Transaminitis -AST 172, ALT 122 --trend is elevated -Likely secondary to history of hepatitis C as well as alcoholism -CK normal. Check liver ultrasound as well as hepatitis panel -INR 1.1 -Recheck CMP Hypertension -On amlodipine -Improved Hyperglycemia. -Could be secondary to cocaine. -A1c 5.3 Chronic alcoholism -Patient denies withdrawal. -CIWA. Monitor Polysubstance use Tobacco abuse, Cocaine, marijuana -cessation counseling provided. DVT prop ambulatory Code Status: Full code Discussed Condition With: Patient, nurse Discharge Planning: DC disposition by primary team
[2018-02-23] MEDS ORDERED: Loperamide 2 MG Capsule PO PRN (23:00)
[2018-02-24 08:39] LABS: Baso % (Auto) 1.4 % (0.0-2.0); Eos # (Auto) 0.2 th/mm3 (0.0-0.4); Eos % (Auto) 6.4 % (0.0-4.0); Hematocrit 44.3 % (39.0-51.0); Hemoglobin 14.8 gm/dL (13.0-17.0); Lymph # (Auto) 1.3 th/mm3 (1.0-4.8); Lymph % (Auto) 48.4 % (9.0-44.0); Mean Corpuscular HGB Conc 33.5 % (32.0-36.0); Mean Corpuscular Hemoglobin 32.9 pg (27.0-34.0); Mean Platelet Volume 9.6 fL (7.0-11.0); Mono # (Auto) 0.3 th/mm3 (0.0-0.9); Mono % (Auto) 10.6 % (0.0-8.0); Neut # (Auto) 0.9 th/mm3 (1.8-7.7); Neut % (Auto) 33.2 % (16.0-70.0); Platelet Count 71 th/mm3 (150-450); Red Blood Count 4.51 mil/mm3 (4.50-5.90); Red Cell Distribution Width 13.1 % (11.6-17.2); White Blood Count 2.7 th/mm3 (4.0-11.0)
[2018-02-24 08:43] LABS: INR 1.1 Ratio; Prothrombin Time 10.9 sec (9.8-11.6)
[2018-02-24 09:01] LABS: Alanine Aminotransferase 143 U/L (12-78); Albumin 2.9 g/dL (3.4-5.0); Anion Gap 7 meq/L (5-15); Aspartate Aminotransferase 121 U/L (15-37); Blood Urea Nitrogen 9 mg/dL (7-18); Calcium 8.1 mg/dL (8.5-10.1); Carbon Dioxide 25.7 meq/L (21.0-32.0); Chloride 108 meq/L (98-107); Glomerular Filtration Rate Greater Than 89 mL/min (>89); Glucose,Random 83 mg/dL (74-106); Sodium 141 meq/L (136-145)
[2018-02-24 09:04] LABS: Alkaline Phosphatase 61 U/L (45-117); Total Protein 7.5 g/dL (6.4-8.2)
--- NOTE | 2018-02-24 09:22 | US ---
EXAM DATE: 02/24/2018 9:18 AM EDT AGE/SEX: 52 years / Male INDICATIONS: Elevated lab values. CLINICAL DATA: This is the patient's initial encounter. Patient reports that signs and symptoms have been present for 1 day and indicates a pain score of 2/10. MEDICAL/SURGICAL HISTORY: Hypertension. Depression. Hepatitis. HIV. None. COMPARISON: No prior exams available for comparison. MEASUREMENTS: Liver:__ 16.1 cm. Common Bile Duct:__ 4mm. Right Kidney:__ 12.1 x 4.2 x 4.5 cm. FINDINGS: Liver: Increased echotexture without focal lesion or ductal dilatation. Portal Vein: Hepatopedal flow seen in portal vein. Common Duct: No intraluminal mass or stone visualized. Gallbladder: Demonstrates no wall thickening or pericholecystic fluid. No stones visualized. Pancreas: The visualized portions are within normal limits Right Kidney: Normal echotexture and cortical thickness. No mass or hydronephrosis. Other: None. CONCLUSION: 1. Echogenic liver parenchyma, mildly prominent in size. This is felt to be characteristic of hepati c steatosis. 2. Otherwise unremarkable. Electronically signed by: Giovanni Holt MD 02/24/2018 9:21 AM EDT
[2018-02-24 09:54] LABS: Eosinophils 2 % (0-4); Lymphocytes 44 % (9-44); Monocytes 17 % (0-8); Platelet Morphology Normal (Normal)
[2018-02-24 09:55] LABS: RBC Morphology Normal (Normal)
[2018-02-24] MEDS: buPROPion 100 MG ER 12 HR Tablet PO SCH ×2 (11:30→21:22)
[2018-02-24] MEDS: amLODIPine 5 MG Tablet PO SCH (11:30)
--- NOTE | 2018-02-24 15:17 | P.PNPSY ---
Subjective Chief Complaint: Substance Induced Mood Disorder Remarks: Reviewed electronic medical records and discussed case with staff. Follow-up was conducted in patient's room with MICHAEL Carroll. Patient complaining of frequent loose stools. A stool sample has been sent to the lab for testing. He completed a liver US today which was unremarkable. He states that he is tried and drained due to the diarrhea. He is trying to keep hydrated. Nursing staff shared that he is HIV positive. He is sleeping and eating . Denies any SI/HI. Review of Systems All other systems reviewed negative except as stated in HPI Mental Status Examination Appearance: Disheveled, Malodorous Consciousness: Alert Orientation: x4 Motor Activity: Normal gait Speech: Slow Language: Adequate Fund of Knowledge: Adequate Attention and Concentration: Easily distracted Memory: Unremarkable Mood: Sad Affect: Blunt Thought Process & Associations: Intact Thought Content: Appropriate Hallucination Type: None Delusion Type: None Suicidal Ideation: No Suicidal Plan: No Suicidal Intention: No Homicidal Ideation: No Homicidal Plan: No Homicidal Intention: No Insight: Fair Judgment: Impulsive Assessment and Plan - Plan Plan: Patient will be reevaluated Sunday by the attending psychiatrist. Continue with current treatment plan. Justification for Continued Inpatient Stay: Moving patient to a less restrictive environment may result in his decompensation.
--- NOTE | 2018-02-24 15:20 | P.PN ---
Subjective Interval history: Follow-up visit HIV, HTN, hep C, polysubstance abuse, heavy alcohol use, depression. Patient seen and examined today. Reports he continues to be doing so-so. States he has diarrhea an hour after he eats. This has been since about 2-3 weeks ago it comes and goes but since he came to the hospital this has never stopped. Stool for C. difficile has been sent for the patient pending results. We will add enteric pathogen. Discussed results of ultrasound. Otherwise, denies pain and discomfort. Denies SOB/ dyspnea. Denies chest pain, palpitations, headaches, dizziness. Denies fevers, chills, n/ v. Denies dysuria. Physical Exam Vital signs: Vital Signs 02/23/18 18:00 02/23/18 20:00 02/24/18 05:08 Temperature 98.0 F 98.3 F 97.9 F Pulse Rate 71 70 60 Respiratory Rate 20 20 16 Blood Pressure 120/84 145/92 H 119/72 Pulse Oximetry 97 99 96 Intake & Output 02/23/18 02/24/18 02/24/18 18:59 06:59 18:59 Intake Total 360 / 360 Balance 360 / 360 Weight 173.4 kg Intake: Oral 360 / 360 Narrative: GENERAL: This is a well-nourished, well-developed patient, in no apparent distress. SKIN: Warm and dry. HEENT: Normocephalic. Pupils equal round and reactive. Nose without bleeding. Airway patent. Left periorbital area ecchymosis. NECK: Trachea midline. No JVD. Supple. CARDIOVASCULAR: Regular rate and rhythm without murmurs, gallops, or rubs. RESPIRATORY: Diminished bases. No wheezes, rales, or rhonchi. GASTROINTESTINAL: Abdomen soft, non-tender, nondistended. Bowel Sounds normoactive x4. MUSCULOSKELETAL: Extremities without clubbing, cyanosis, or edema. NEUROLOGICAL: Awake and alert. No focal neuro deficit. Moves all extremities. Normal speech. Results - Labs CBC & Chem 7: 02/24/18 08:16 02/24/18 08:16 Laboratory Results - last 24 hr 02/24/18 02/24/18 02/24/18 08:16 08:16 08:16 WBC 2.7 L RBC 4.51 Hgb 14.8 Hct 44.3 MCV 98.0 MCH 32.9 MCHC 33.5 RDW 13.1 Plt Count 71 L MPV 9.6 Prelim Diff (Auto) Slide review pending Neut % (Auto) 33.2 Lymph % (Auto) 48.4 H [place] % (Auto) 10.6 H Eos % (Auto) 6.4 H Baso % (Auto) 1.4 Neut # (Auto) 0.9 L Lymph # (Auto) 1.3 [place] # (Auto) 0.3 Eos # (Auto) 0.2 Baso # (Auto) 0.0 WBC Differential Manual diff final Seg Neuts % (Manual) 35 Band Neuts % (Manual) 2 Lymphocytes % (Manual) 44 Monocytes % (Manual) 17 H Eosinophils % (Manual) 2 Abs Neuts (Manual) 1.0 L Differential Comment . Platelet Estimate Low L Platelet Morphology Normal RBC Morphology Normal PT 10.9 INR 1.1 Sodium 141 Potassium 4.0 Chloride 108 H Carbon Dioxide 25.7 Anion Gap 7 BUN 9 Creatinine 0.74 Estimated GFR Greater than 89 Random Glucose 83 Calcium 8.1 L Total Bilirubin 0.5 AST 121 H ALT 143 H Alkaline Phosphatase 61 Total Protein 7.5 Albumin 2.9 L - Imaging Impressions Liver Ultrasound 02/24/18 00:00 CONCLUSION: 1. Echogenic liver parenchyma, mildly prominent in size. This is felt to be characteristic of hepatic steatosis. 2. Otherwise unremarkable. Assessment and Plan - Plan 52-year-old male with a history of HIV, hypertension, hepatitis C, cocaine, marijuana, heavy alcohol use depression who is admitted for suicidal ideation. He is on inpatient psychiatry for further evaluation. Consulted for assistance with medical management. HIV Leukopenia -HIV diagnosed in the 1980s. He was with HIV medications before but not taking anything now -White count 3.5 on admission. -No signs of infection. -Pending CD4 count. Follow white blood cell count. Transaminitis History of hepatitis C, untreated -AST 172, ALT 122, improving -Likely secondary to history of hepatitis C as well as alcoholism -CK normal -Hepatitis C positive -Liver ultrasound showed echogenic liver parenchyma, mildly prominent in size. This is felt to be characteristic of hepatic steatosis. Otherwise unremarkable. -INR 1.1 -Discussed need to continue with treatments for HIV and possible hepatitis C treatment. Discussed results of the ultrasound. Discussed alcohol cessation, polysubstance abuse cessation. Diarrhea -Stool for C. difficile sent, pending result -Check enteric pathogen -Lactinex twice daily Hypertension -On amlodipine -Improved Hyperglycemia. -Could be secondary to cocaine. -A1c 5.3 Chronic alcoholism -Patient denies withdrawal. -CIWA. Monitor Polysubstance use Tobacco abuse, Cocaine, marijuana -cessation counseling provided. DVT prop ambulatory Code Status: Full code Discussed Condition With: Patient, nurse Discharge Planning: DC disposition by primary team
--- NOTE | 2018-02-24 15:22 | P.PNPSY ---
Subjective Chief Complaint: Substance Induced Mood Disorder Remarks: Reviewed electronic medical records and discussed case with staff. Follow-up was conducted in patient's room with MICHAEL Carroll. Patient complaining of frequent loose stools. A stool sample has been sent to the lab for testing. He completed a liver US today which was unremarkable. He states that he is tried and drained due to the diarrhea. He is trying to keep hydrated. Nursing staff shared that he is HIV positive. He is sleeping and eating . Denies any SI/HI. Denies AVH. Review of Systems All other systems reviewed negative except as stated in HPI Mental Status Examination Appearance: Disheveled, Malodorous Consciousness: Alert Orientation: x4 Motor Activity: Normal gait Speech: Slow Language: Adequate Fund of Knowledge: Adequate Attention and Concentration: Inadequate Memory: Unremarkable Mood: Sad Affect: Blunt Thought Process & Associations: Intact Thought Content: Appropriate Hallucination Type: None Delusion Type: None Suicidal Ideation: No Suicidal Plan: No Suicidal Intention: No Homicidal Ideation: No Homicidal Plan: No Homicidal Intention: No Insight: Fair Judgment: Impulsive Assessment and Plan - Plan Plan: Estimated LOS: [] days Patient is stable. Continue current plan of care. Follow up care by psychiatrist on Sunday. Justification for Continued Inpatient Stay: Moving patient to a less restrictive environment may result in his decompensation. Discharge Planning: DIAGNOSIS : SUBSTANCE INDUCED MOOD DISORDER F 19
[2018-02-24] MEDS: Lactobacillus Acidophilus/L. Spores Tablet PO SCH (21:22)
[2018-02-25] MEDS: Lactobacillus Acidophilus/L. Spores Tablet PO SCH ×2 (08:40→20:52)
[2018-02-25] MEDS: amLODIPine 5 MG Tablet PO SCH (08:40)
[2018-02-25] MEDS: buPROPion 100 MG ER 12 HR Tablet PO SCH ×2 (08:40→17:52)
--- NOTE | 2018-02-25 15:13 | P.PN ---
Subjective Interval history: Follow-up visit HIV, HTN, hep C, polysubstance abuse, heavy alcohol use, depression. Patient seen and examined today. Reports he has intermittent diarrhea but nothing today. Denies pain and discomfort. Denies SOB/ dyspnea. Denies chest pain, palpitations, headaches, dizziness. Denies fevers, chills, n/ v. Denies dysuria. Physical Exam Vital signs: Vital Signs 02/25/18 06:00 Temperature 98.1 F Pulse Rate 66 Respiratory Rate 16 Blood Pressure 123/72 Pulse Oximetry 98 Intake & Output 02/24/18 02/25/18 02/25/18 18:59 06:59 18:59 Intake Total 360 / 360 Balance 360 / 360 Weight 79.6 kg Intake: Oral 360 / 360 Narrative: GENERAL: This is a well-nourished, well-developed patient, in no apparent distress. SKIN: Warm and dry. HEENT: Normocephalic. Pupils equal round and reactive. Nose without bleeding. Airway patent. Left periorbital area ecchymosis. NECK: Trachea midline. No JVD. Supple. CARDIOVASCULAR: Regular rate and rhythm without murmurs, gallops, or rubs. RESPIRATORY: Diminished bases. No wheezes, rales, or rhonchi. GASTROINTESTINAL: Abdomen soft, non-tender, nondistended. Bowel Sounds normoactive x4. MUSCULOSKELETAL: Extremities without clubbing, cyanosis, or edema. NEUROLOGICAL: Awake and alert. No focal neuro deficit. Moves all extremities. Normal speech. Results - Labs CBC & Chem 7: 02/24/18 08:16 02/24/18 08:16 Laboratory Results - last 24 hr 02/24/18 08:20 Stl C.difficile Tox PCR Negative St C. diff Tox Epid 027 Negative Assessment and Plan - Plan 52-year-old male with a history of HIV, hypertension, hepatitis C, cocaine, marijuana, heavy alcohol use depression who is admitted for suicidal ideation. He is on inpatient psychiatry for further evaluation. Consulted for assistance with medical management. HIV Leukopenia -HIV diagnosed in the 1980s. He was with HIV medications before but not taking anything now -White count 3.5 on admission. -No signs of infection. -Pending CD4 count. -If <200, May start Dapsone 100 daily, unable to take Bactrim due to sulfa allergy prevent opportunistic infections. If less than 100 may add pyrimethamine and leucovorin. -Discuss extensively with patient he may benefit with starting HIV treatments and outpatient and possible hep C treatment. Transaminitis History of hepatitis C, untreated -AST 172, ALT 122, improving -Likely secondary to history of hepatitis C as well as alcoholism -CK normal -Hepatitis C positive -Liver ultrasound showed echogenic liver parenchyma, mildly prominent in size. This is felt to be characteristic of hepatic steatosis. Otherwise unremarkable. -INR 1.1 -Discussed need to continue with treatments for HIV and possible hepatitis C treatment. Discussed results of the ultrasound. Discussed alcohol cessation, polysubstance abuse cessation. Diarrhea -Stool for C. difficile negative -Check enteric pathogen -Lactinex twice daily -Imodium PRN Hypertension -On amlodipine -Improved Hyperglycemia. -Could be secondary to cocaine. -A1c 5.3 Chronic alcoholism -Patient denies withdrawal. -CIWA. Monitor Polysubstance use Tobacco abuse, Cocaine, marijuana -cessation counseling provided. DVT prop ambulatory Code Status: Full code Discussed Condition With: Patient, nurse Discharge Planning: DC disposition by primary team
--- NOTE | 2018-02-25 18:40 | P.PNPSY ---
Subjective Chief Complaint: Substance Induced Mood Disorder Remarks: Patient seen for follow up; chart reviewed. Discussion with nursing staff reported that patient somewhat isolative and attending some groups. Patient was found lying hospital bed noted become cooperative. Patient states that his mood is "too much different, low to medium". Patient states having attended to groups, continues with auditory hallucinations of whispers, but states there are not voices. Continues report feeling depressed, continued intermittent suicide ideations. Patient state he is interested in going attending rehabilitation program was sober living and will explore this while here on the unit. Patient was encouraged to participate in groups and activities which he agreed. Review of Systems All other systems reviewed negative except as stated in HPI Mental Status Examination Appearance: Disheveled Consciousness: Alert Orientation: x4 Motor Activity: Normal gait Speech: Slow Language: Adequate Fund of Knowledge: Adequate Attention and Concentration: Inadequate Memory: Unremarkable Mood: Sad Affect: Blunt Thought Process & Associations: Intact Thought Content: Appropriate, Hallucinations Hallucination Type: Auditory (Whispers) Delusion Type: None Suicidal Ideation: No Suicidal Plan: No Suicidal Intention: No Homicidal Ideation: No Homicidal Plan: No Homicidal Intention: No Insight: Fair Judgment: Impulsive Assessment and Plan - Assessment (1) Depressive disorder Code(s): F32.9 - Major depressive disorder, single episode, unspecified Status : Acute (2) Substance induced mood disorder Code(s): F19.94 - Other psychoactive substance use, unspecified with psychoactive substance-induced mood disorder Status: Acute (3) Substance abuse Code(s): F19.10 - Other psychoactive substance abuse, uncomplicated Status: Acute - Plan Plan: Patient this time continues with depressed mood along with intermittent suicide ideations and auditory hallucinations of whispers. We will increase risperidone to 1 mg a.m./1.5 mg at bedtime for psychosis, and agrees Wellbutrin to 100 mg p.o. 3 times daily for depression. Continue rest of medications. Continue to monitor mood and behavior. Continue recommendations as per prior medical team. Discharge planning in progress. Justification for Continued Inpatient Stay: At risk of further decompensation at lower level of care.
[2018-02-26] MEDS: Lactobacillus Acidophilus/L. Spores Tablet PO SCH ×2 (08:15→20:20)
[2018-02-26] MEDS: amLODIPine 5 MG Tablet PO SCH ×2 (08:15→20:21)
[2018-02-26] MEDS: buPROPion 100 MG ER 12 HR Tablet PO SCH ×3 (08:16→20:21)
--- NOTE | 2018-02-26 14:45 | P.PNIM ---
Subjective Interval history: Follow-up visit HIV, HTN, hep C, polysubstance abuse, heavy alcohol use, depression. Patient seen and examined today with the nursing staff, pt sitting at the side of the bed, denies any pain or shortness of breath, denies any nausea or vomiting, denies any fever but complaints of some chills at night, stated only at night. patient said he is a little down today and addressed concern that he did not have his Risperdal last night, stated he got the morning dose but not the night dose. Patient stated he usually take a dose at night also. Advise patient will review medication and reinstate the dosage as necessary. Patient also addressed concern on high blood pressure being 100 for the bottom number. Discussed to the patient medication adjustment and dosage. Physical Exam Vital signs: Vital Signs 02/25/18 18:13 02/26/18 05:45 Temperature 97.5 F L 97.9 F Pulse Rate 76 54 L Respiratory Rate 18 Blood Pressure 147/89 H 162/100 H Pulse Oximetry 97 98 Narrative: GENERAL: This is a well-nourished, well-developed patient, alert and oriented x 3, in no apparent distress. SKIN: Warm and dry. HEENT: Normocephalic. Pupils equal round and reactive. Nose without bleeding. Airway patent. Left periorbital area ecchymosis. NECK: Trachea midline. No JVD. Supple. CARDIOVASCULAR: Regular rate and rhythm without murmurs, gallops, or rubs. No edema RESPIRATORY: Diminished bases. No wheezes, rales, or rhonchi. GASTROINTESTINAL: Abdomen soft, non-tender, nondistended. Bowel Sounds normoactive x4. MUSCULOSKELETAL: Extremities without clubbing, cyanosis, or edema. Moving 4 all extremities, 5/5 muscle strength NEUROLOGICAL: Awake and alert. No focal neuro deficit. Moves all extremities. Normal speech. Results - Labs CBC & Chem 7: 02/24/18 08:16 02/24/18 08:16 Assessment and Plan - Plan 52-year-old male with a history of HIV, hypertension, hepatitis C, cocaine, marijuana, heavy alcohol use depression who is admitted for suicidal ideation. He is on inpatient psychiatry for further evaluation. Consulted for assistance with medical management. HIV Leukopenia -HIV diagnosed in the . He was with HIV medications before but not taking anything now -White count 3.5 on admission, today 2.7, monitor CBC, monitor signs and symptoms -No signs of infection. No fever -Pending CD4 count. -If <200, May start Dapsone 100 daily, unable to take Bactrim due to sulfa allergy prevent opportunistic infections. If less than 100 may add pyrimethamine and leucovorin. -Discuss extensively with patient he may benefit with starting HIV treatments and outpatient and possible hep C treatment. Transaminitis History of hepatitis C, untreated -AST 172, ALT 122, improving on 02/24 AST 121/ ALT 143 -Likely secondary to history of hepatitis C as well as alcoholism -CK normal -Hepatitis C positive -Liver ultrasound showed echogenic liver parenchyma, mildly prominent in size. This is felt to be characteristic of hepatic steatosis. Otherwise unremarkable. -INR 1.1 -Discussed need to continue with treatments for HIV and possible hepatitis C treatment. Discussed results of the ultrasound. Discussed alcohol cessation, polysubstance abuse cessation. Diarrhea -improved, no diarrhea today -Stool for C. difficile negative -Check enteric pathogen -continue Lactinex twice daily -continue Imodium PRN Hypertension -BP elevated -increase amlodipine dose -monitor BP Hyperglycemia. -Blood glucose improved -Could be secondary to cocaine. -A1c 5.3 Chronic alcoholism -Patient denies withdrawal. -CIWA. Monitor Polysubstance use Tobacco abuse, Cocaine, marijuana -Counseling on Tobacco cessation provided. DVT prophylaxis: ambulatory
--- NOTE | 2018-02-26 23:47 | P.PNPSY ---
Subjective Chief Complaint: Substance Induced Mood Disorder Remarks: Patient seen for follow up; chart reviewed. Discussion with nursing staff reported patient more visible on the unit and attending groups. Patient was found in blade on unit noted B, cooperative. Patient states that he had some sleep disturbance last evening and that his mood has been "swinging up and down slightly more up". Patient state he is feeling better, reports his mood to be improving and lessening of the auditory hallucinations of whispers. Patient continues to have intermittent suicide ideations but are decreasing last time being this morning. Patient states that he has attempted to reach sober living facilities or rehabilitation programs which he states he may not be able to afford her qualify for. Patient mentions that he is also considering returning back to [place] to live with a friend. Review of Systems All other systems reviewed negative except as stated in HPI Mental Status Examination Appearance: Appropriate Consciousness: Alert Orientation: x4 Motor Activity: Normal gait Speech: Slow Language: Adequate Fund of Knowledge: Adequate Attention and Concentration: Inadequate Memory: Unremarkable Mood: Sad Affect: Sad Thought Process & Associations: Intact Thought Content: Appropriate Hallucination Type: Auditory (Lessening) Delusion Type: None Suicidal Ideation: Yes (Intermittent) Suicidal Plan: No Suicidal Intention: No Homicidal Ideation: No Homicidal Plan: No Homicidal Intention: No Insight: Fair Judgment: Impulsive Assessment and Plan - Assessment (1) Depressive disorder Code(s): F32.9 - Major depressive disorder, single episode, unspecified Status : Acute (2) Substance induced mood disorder Code(s): F19.94 - Other psychoactive substance use, unspecified with psychoactive substance-induced mood disorder Status: Acute (3) Substance abuse Code(s): F19.10 - Other psychoactive substance abuse, uncomplicated Status: Acute - Plan Plan: Patient this time noted with improvement in mood, depression is lessening and decreasing suicide ideations and auditory hallucinations. We will continue current treatment. Continue to monitor mood and behavior. Discharge planning in progress. Justification for Continued Inpatient Stay: At risk of further decompensation at lower level of care.
[2018-02-27] MEDS: buPROPion 100 MG ER 12 HR Tablet PO SCH ×3 (08:23→18:22)
[2018-02-27] MEDS: Lactobacillus Acidophilus/L. Spores Tablet PO SCH ×2 (08:24→20:32)
[2018-02-27] MEDS: amLODIPine 5 MG Tablet PO SCH ×2 (08:24→20:33)
--- NOTE | 2018-02-27 13:55 | P.PNIM ---
Subjective Interval history: Follow-up visit HIV, HTN, hep C, polysubstance abuse, heavy alcohol use, depression. Patient seen and examined today with digital imaging technician at the door. Patient lying in bed, stated wanted to get some rest. Pt mentioned about his usual slight pain which is generalized but stated he is used to it. Pt denies any headache or dizziness, denies any fever or chills, denies any nausea, vomiting diarrhea or constipation. Pt stated feeling better. Physical Exam Vital signs: Vital Signs 02/27/18 06:23 02/27/18 07:51 Temperature 98.4 F Pulse Rate 78 104 H Respiratory Rate 15 Blood Pressure 142/84 H 149/89 H Pulse Oximetry 98 Intake & Output 02/26/18 02/27/18 02/27/18 18:59 06:59 18:59 Intake Total 480 / 480 Balance 480 / 480 Intake: Oral 480 / 480 Narrative: GENERAL: This is a well-nourished, well-developed patient, alert and oriented x 3, in no apparent distress. SKIN: Warm and dry. HEENT: Normocephalic. Pupils equal round and reactive. Nose without bleeding. Airway patent. NECK: Trachea midline. No JVD. Supple. CARDIOVASCULAR: Regular rate and rhythm without murmurs, gallops, or rubs. No edema RESPIRATORY: Diminished bases. No wheezes, rales, or rhonchi. GASTROINTESTINAL: Abdomen soft, non-tender, nondistended. Bowel Sounds normoactive x4. MUSCULOSKELETAL: Extremities without clubbing, cyanosis, or edema. Moving 4 all extremities, 5/5 muscle strength NEUROLOGICAL: Awake and alert. No focal neuro deficit. Moves all extremities. Normal speech. Results - Labs CBC & Chem 7: 02/24/18 08:16 02/24/18 08:16 Assessment and Plan - Plan 52-year-old male with a history of HIV, hypertension, hepatitis C, cocaine, marijuana, heavy alcohol use depression who is admitted for suicidal ideation. He is on inpatient psychiatry for further evaluation. Consulted for assistance with medical management. HIV Leukopenia/thrombocytopenia -patient non compliant with medication treatment as outpatient -HIV diagnosed in the . He was with HIV medications before but not taking anything now -White count 3.5 on admission, now 2.7, monitor CBC, monitor signs and symptoms -No signs of infection, No fever. -Pending CD4 count. -If <200, May start Dapsone 100 daily, unable to take Bactrim due to sulfa allergy prevent opportunistic infections. If less than 100 may add pyrimethamine and leucovorin. This is a possible option questionable for patient compliance with medication regimen. Pt with history of not taking all his medication recently. -Discuss extensively with patient he may benefit with starting HIV treatments and outpatient and possible hep C treatment. Transaminitis History of hepatitis C, untreated -AST 172, ALT 122, improving on 02/24 AST 121/ ALT 143 -Likely secondary to history of hepatitis C as well as alcoholism -CK normal -Hepatitis C positive -Liver ultrasound showed echogenic liver parenchyma, mildly prominent in size. This is felt to be characteristic of hepatic steatosis. Otherwise unremarkable. -INR 1.1 -Discussed need to continue with treatments for HIV and possible hepatitis C treatment. Discussed results of the ultrasound. Discussed alcohol cessation, polysubstance abuse cessation. Hypertension -BP elevated -increase amlodipine dose -monitor BP Hyperglycemia. -Blood glucose improved -Could be secondary to cocaine. -A1c 5.3 Chronic alcoholism -Patient denies withdrawal. -[facility] protocol. Monitor Polysubstance use Tobacco abuse, Cocaine, marijuana -Counseling on polysubstance use cessation provided. Diarrhea -improved, no diarrhea today -Stool for C. difficile negative -Check enteric pathogen -continue Lactinex twice daily -continue Imodium PRN DVT prophylaxis: ambulatory Discussed Condition With: patient and nursing
--- NOTE | 2018-02-27 18:19 | P.PNPSY ---
Subjective Chief Complaint: Substance Induced Mood Disorder Remarks: Patient seen for follow up; chart reviewed. Discussion with nursing staff reported that patient feeling better, visible in the unit at times occasion. Patient was found in blade on unit noted B, cooperative. Patient states that he is feeling "better" continues to have auditory hallucinations of whispers and states that it is less today. Patient denies any suicide ideations today. Patient states that he is interested in sober living facilities but that he is unable to get into this facility or program he would like to be assisted with transport to [place] where he can stay with a friend. Review of Systems All other systems reviewed negative except as stated in HPI Mental Status Examination Appearance: Appropriate Consciousness: Alert Orientation: x4 Motor Activity: Normal gait Speech: Slow Language: Adequate Fund of Knowledge: Adequate Attention and Concentration: Inadequate Memory: Unremarkable Mood: Appropriate Affect: Blunt Thought Process & Associations: Intact Thought Content: Appropriate Hallucination Type: Auditory (minimal) Delusion Type: None Suicidal Ideation: Yes (Intermittent) Suicidal Plan: No Suicidal Intention: No Homicidal Ideation: No Homicidal Plan: No Homicidal Intention: No Insight: Fair Judgment: Impulsive Assessment and Plan - Assessment (1) Depressive disorder Code(s): F32.9 - Major depressive disorder, single episode, unspecified Status : Acute (2) Substance induced mood disorder Code(s): F19.94 - Other psychoactive substance use, unspecified with psychoactive substance-induced mood disorder Status: Acute (3) Substance abuse Code(s): F19.10 - Other psychoactive substance abuse, uncomplicated Status: Acute - Plan Plan: Patient this time noted to have improvement in mood, fleeting suicidal ideations and minimal auditory hallucinations. We will continue current treatment. Continue monitor mood and behavior. Treatment team to assist in disposition for patient to engage in rehabilitation program. Justification for Continued Inpatient Stay: At risk of further decompensation a lower level of care.
[2018-02-28] MEDS: Lactobacillus Acidophilus/L. Spores Tablet PO SCH ×2 (08:58→21:29)
[2018-02-28] MEDS: buPROPion 100 MG ER 12 HR Tablet PO SCH ×3 (08:58→18:33)
[2018-02-28] MEDS: amLODIPine 5 MG Tablet PO SCH ×2 (08:58→21:28)
--- NOTE | 2018-02-28 15:04 | P.PNIM ---
Subjective Interval history: Follow-up visit HIV, HTN, hep C, polysubstance abuse, heavy alcohol use, depression. Pt seen and examined in his room, stated feeling better. Stated no more abdominal pain or diarrhea. patient denies any chest pain or shortness of breath, denies any headache or dizziness, denies any nausea or vomiting, denies any constipation or diarrhea. Discussed HIV and lab results, Patient stated his last CD 4 was 240 and was worried now. Discussed the need for treatment and follow up with his Infectious disease clinic. Patient stated he stopped taking his medication, because he is tired of taking it. Patient stated he is from [place], has been seeing Dr Daryl Pederson in [place], [place] at the [facility]. He also said he can get free medication from the [facility] and still can get free medications. Discussed the need to monitor his blood works while on medications. Reinforced the need to follow up and resatrt on his treatment. Patient verbalized understanding. Physical Exam Vital signs: Vital Signs 02/27/18 19:00 02/28/18 05:42 02/28/18 07:13 Temperature 98.4 F 98.2 F 98.2 F Pulse Rate 78 68 68 Respiratory Rate 15 16 16 Blood Pressure 142/84 H 111/69 111/69 Pulse Oximetry 98 95 95 Intake & Output 02/27/18 02/28/18 02/28/18 18:59 06:59 18:59 Intake Total 1320 / 1320 Balance 1320 / 1320 Weight 82.7 kg Intake: Oral 1320 / 1320 Narrative: GENERAL: This is a well-nourished, well-developed patient, alert and oriented x 3, in no apparent distress. SKIN: Warm and dry. HEENT: Normocephalic. Pupils equal round and reactive. Nose without bleeding. Airway patent. NECK: Trachea midline. No JVD. Supple. CARDIOVASCULAR: Regular rate and rhythm without murmurs, gallops, or rubs. No edema RESPIRATORY: Diminished bases. No wheezes, rales, or rhonchi. GASTROINTESTINAL: Abdomen soft, non-tender, nondistended. Bowel Sounds normoactive x4. MUSCULOSKELETAL: Extremities without clubbing, cyanosis, or edema. Moving 4 all extremities, 5/5 muscle strength NEUROLOGICAL: Awake and alert. No focal neuro deficit. Moves all extremities. Normal speech. Results - Labs CBC & Chem 7: 02/24/18 08:16 02/24/18 08:16 Laboratory Results - last 24 hr 02/25/18 09:30 Absolute Lymphocytes 1184 % CD3 Cells 93 H Absolute CD3 Count 1098 % CD3-/CD16+/CD56+ 5 Abs CD3-/CD16+/CD56+ 68 L % CD4 Cells 19 L Absolute CD4 Count 201 L T-Help/Suppress Ratio 0.30 L % CD8 Cells 74 H Absolute CD8 Count 772 % CD19 Cells 2 L Absolute CD19 Count 21 L Assessment and Plan - Plan 52-year-old male with a history of HIV, hypertension, hepatitis C, cocaine, marijuana, heavy alcohol use depression who is admitted for suicidal ideation. He is on inpatient psychiatry for further evaluation. Consulted for assistance with medical management. HIV Leukopenia/thrombocytopenia -patient non compliant with medication treatment as outpatient -HIV diagnosed in the . He was with HIV medications before but not taking anything now -White count 3.5 on admission, now 2.7, monitor CBC, monitor signs and symptoms -No signs of infection, No fever. -CD4 count 201, patient stated previously 240 -If <200, May start Dapsone 100 daily, unable to take Bactrim due to sulfa allergy prevent opportunistic infections. If less than 100 may add pyrimethamine and leucovorin. This is a possible option questionable for patient compliance with medication regimen. Pt with history of not taking all his medication recently. -Discuss extensively with patient he may benefit with starting HIV treatments and outpatient and possible hep C treatment. Transaminitis History of hepatitis C, untreated -AST 172, ALT 122, improving on 02/24 AST 121/ ALT 143 -Likely secondary to history of hepatitis C as well as alcoholism -CK normal -Hepatitis C positive -Liver ultrasound showed echogenic liver parenchyma, mildly prominent in size. This is felt to be characteristic of hepatic steatosis. Otherwise unremarkable. -INR 1.1 -Discussed need to continue with treatments for HIV and possible hepatitis C treatment. Discussed results of the ultrasound. Discussed alcohol cessation, polysubstance abuse cessation. -Pt to follow up with [facility] in [place], [place] and with [employer] [facility] for his medication supplies Hypertension -BP elevated -increase amlodipine dose -monitor BP Hyperglycemia. -Blood glucose improved -Could be secondary to cocaine. -A1c 5.3 Chronic alcoholism -Patient denies withdrawal. -[facility] protocol. Monitor Polysubstance use Tobacco abuse, Cocaine, marijuana -Counseling on polysubstance use cessation provided. Diarrhea -improved, no diarrhea today -Stool for C. difficile negative -Check enteric pathogen -continue Lactinex twice daily -continue Imodium PRN DVT prophylaxis: ambulatory Discussed Condition With: nurse and patient Discharge Planning: Upon discharge, Pt to follow up with [facility] in [place], [place] and with [facility] for his medication supplies for his HIV
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
[2018-03-01] MEDS: Lactobacillus Acidophilus/L. Spores Tablet PO SCH ×2 (08:41→21:10)
[2018-03-01] MEDS: amLODIPine 5 MG Tablet PO SCH ×2 (08:42→21:10)
[2018-03-01] MEDS: buPROPion 100 MG ER 12 HR Tablet PO SCH ×3 (08:42→17:11)
[2018-03-01 09:09] LABS: Hematocrit 42.6 % (39.0-51.0); Hemoglobin 14.1 gm/dL (13.0-17.0); Mean Corpuscular HGB Conc 33.1 % (32.0-36.0); Mean Corpuscular Hemoglobin 32.9 pg (27.0-34.0); Mean Corpuscular Volume 99.6 fL (80.0-100.0); Platelet Count 88 th/mm3 (150-450); Red Blood Count 4.28 mil/mm3 (4.50-5.90); Red Cell Distribution Width 13.2 % (11.6-17.2); White Blood Count 2.7 th/mm3 (4.0-11.0)
[2018-03-01 09:22] LABS: Albumin 2.7 g/dL (3.4-5.0); Anion Gap 9 meq/L (5-15); Aspartate Aminotransferase 91 U/L (15-37); Blood Urea Nitrogen 9 mg/dL (7-18); Calcium 8.4 mg/dL (8.5-10.1); Carbon Dioxide 26.5 meq/L (21.0-32.0); Chloride 106 meq/L (98-107); Glomerular Filtration Rate Greater Than 89 mL/min (>89); Glucose,Random 155 mg/dL (74-106); Potassium 3.6 meq/L (3.5-5.1); Sodium 141 meq/L (136-145)
[2018-03-01 09:23] LABS: Alanine Aminotransferase 120 U/L (12-78)
[2018-03-01 09:26] LABS: Alkaline Phosphatase 55 U/L (45-117); Total Protein 6.8 g/dL (6.4-8.2)
--- NOTE | 2018-03-01 13:02 | P.PNIM ---
Subjective Interval history: Follow-up visit HIV, HTN, hep C, polysubstance abuse, heavy alcohol use, depression. Pt seen and examined in his room, stated feeling better. Patient c/ o of headache that comes and goes, not associated with anything, intensity is about 4/10 scale relieved with rest, patient stated usually take ibuprofen, cannot take tylenol due to his liver. Physical Exam Vital signs: Vital Signs 02/28/18 19:00 03/01/18 04:50 Temperature 97.4 F L 98.1 F Pulse Rate 75 63 Respiratory Rate 18 16 Blood Pressure 137/68 138/85 Pulse Oximetry 98 97 Intake & Output 02/28/18 03/01/18 03/01/18 18:59 06:59 18:59 Intake Total 360 / 360 Balance 360 / 360 Intake: Oral 360 / 360 Results - Labs CBC & Chem 7: 03/01/18 08:21 03/01/18 08:21 Laboratory Results - last 24 hr 03/01/18 03/01/18 08:21 08:21 WBC 2.7 L RBC 4.28 L Hgb 14.1 Hct 42.6 MCV 99.6 MCH 32.9 MCHC 33.1 RDW 13.2 Plt Count 88 L MPV 9.0 Sodium 141 Potassium 3.6 Chloride 106 Carbon Dioxide 26.5 Anion Gap 9 BUN 9 Creatinine 0.76 Estimated GFR Greater than 89 Random Glucose 155 H Calcium 8.4 L Total Bilirubin 0.4 AST 91 H ALT 120 H Alkaline Phosphatase 55 Total Protein 6.8 D Albumin 2.7 L Assessment and Plan - Plan 52-year-old male with a history of HIV, hypertension, hepatitis C, cocaine, marijuana, heavy alcohol use depression who is admitted for suicidal ideation. He is on inpatient psychiatry for further evaluation. Consulted for assistance with medical management. HIV Leukopenia/thrombocytopenia -patient non compliant with medication treatment as outpatient -HIV diagnosed in the 1980s. He was with HIV medications before but not taking anything now -White count 3.5 on admission, now 2.7, monitor CBC, monitor signs and symptoms -No signs of infection, No fever. -CD4 count 201, patient stated previously 240 -If <200, May start Dapsone 100 daily, unable to take Bactrim due to sulfa allergy prevent opportunistic infections. If less than 100 may add pyrimethamine and leucovorin. This is a possible option questionable for patient compliance with medication regimen. Pt with history of not taking all his medication recently. -Discuss extensively with patient he may benefit with starting HIV treatments and outpatient and possible hep C treatment. -monitor for signs and symptoms of infection Transaminitis History of hepatitis C, untreated -AST 172, ALT 122, improving on 02/24 AST 121/ ALT 143 -Likely secondary to history of hepatitis C as well as alcoholism -CK normal -Hepatitis C positive -Liver ultrasound showed echogenic liver parenchyma, mildly prominent in size. This is felt to be characteristic of hepatic steatosis. Otherwise unremarkable. -INR 1.1 -Discussed need to continue with treatments for HIV and possible hepatitis C treatment. Discussed results of the ultrasound. Discussed alcohol cessation, polysubstance abuse cessation. -Pt to follow up with [facility] in [place], [place] and with [email or web address] for his medication supplies Hypertension -BP elevated -increase amlodipine dose -monitor BP Hyperglycemia. -Blood glucose improved -Could be secondary to cocaine. -A1c 5.3 Chronic alcoholism -Patient denies withdrawal. -[facility] protocol. Monitor Polysubstance use Tobacco abuse, Cocaine, marijuana -Counseling on polysubstance use cessation provided. Diarrhea -improved, no diarrhea today -Stool for C. difficile negative -Check enteric pathogen -continue Lactinex twice daily -continue Imodium PRN Headache/generalized pain - add NSAID, pt instructed should not take acetaminophen due to his liver disease -monitor response DVT prophylaxis: ambulatory Medical Team will sign off, but will be available as the need arise. Thank you for your consultation. Discussed Condition With: patient and nurse Discharge Planning: Upon discharge, Pt to follow up with [facility] in [place], [place] and with [employer] [facility] for his medication supplies for his HIV
[2018-03-01] MEDS: Ibuprofen 400 MG Tablet PO PRN (18:06)
--- NOTE | 2018-03-01 20:33 | P.PNPSY ---
Subjective Chief Complaint: Substance Induced Mood Disorder Remarks: Patient seen for follow, chart reviewed. Discussion nursing staff reported the patient compliant with medications slept well, eating and drinking well. Patient is currently on unit noted B, cooperative. Patient reports sleeping well, mood has been "up and down" stating that he plans on going to [place] upon discharge with plan to help this friend continues follow stare. Patient continues to have persistent auditory hallucinations of "whispers" stating that he had this for quite some time, denying any suicidal homicidal ideations. Review of Systems All other systems reviewed negative except as stated in HPI Mental Status Examination Appearance: Appropriate Consciousness: Alert Orientation: x4 Motor Activity: Normal gait Speech: Slow Language: Adequate Fund of Knowledge: Adequate Attention and Concentration: Inadequate Memory: Unremarkable Mood: Appropriate Affect: Blunt Thought Process & Associations: Intact Thought Content: Appropriate Hallucination Type: Auditory (minimal) Delusion Type: None Suicidal Ideation: No Suicidal Plan: No Suicidal Intention: No Homicidal Ideation: No Homicidal Plan: No Homicidal Intention: No Insight: Fair Judgment: Impulsive Assessment and Plan - Assessment (1) Depressive disorder Code(s): F32.9 - Major depressive disorder, single episode, unspecified Status : Acute (2) Substance induced mood disorder Code(s): F19.94 - Other psychoactive substance use, unspecified with psychoactive substance-induced mood disorder Status: Acute (3) Substance abuse Code(s): F19.10 - Other psychoactive substance abuse, uncomplicated Status: Acute - Plan Plan: Patient is stable mood, denying any suicide ideations and the patient has chronic auditory hallucinations which are not distressing to the patient. Patient for discharge once availability of transport by bus to his home town is available where he has adequate support. Continue to monitor mood and behavior. Discharge planning a progress. Justification for Continued Inpatient Stay: At risk for further decompensation if at lower level of care.
[2018-03-02] MEDS: Lactobacillus Acidophilus/L. Spores Tablet PO SCH ×2 (08:11→21:43)
[2018-03-02] MEDS: buPROPion 100 MG ER 12 HR Tablet PO SCH ×3 (08:11→18:25)
[2018-03-02] MEDS: amLODIPine 5 MG Tablet PO SCH ×2 (08:12→21:44)
--- NOTE | 2018-03-02 13:23 | P.PNPSY ---
Subjective Chief Complaint: Substance Induced Mood Disorder Remarks: Pt seen and discussed with staff. He has been compliant with medications and is tolerating without side effects. He has been cooperative with care but engages in limited unit activity. He reports that mood is depressed but improving. No SI /HI. Mental Status Examination Appearance: Appropriate Consciousness: Alert Orientation: x4 Motor Activity: Normal gait Speech: Slow Language: Adequate Fund of Knowledge: Adequate Attention and Concentration: Inadequate Memory: Unremarkable Mood: Sad Affect: Flat Thought Process & Associations: Intact Thought Content: Appropriate Hallucination Type: None Delusion Type: None Suicidal Ideation: No Suicidal Plan: No Suicidal Intention: No Homicidal Ideation: No Homicidal Plan: No Homicidal Intention: No Insight: Fair Judgment: Impulsive Assessment and Plan - Assessment (1) Depressive disorder Code(s): F32.9 - Major depressive disorder, single episode, unspecified Status : Acute (2) Substance induced mood disorder Code(s): F19.94 - Other psychoactive substance use, unspecified with psychoactive substance-induced mood disorder Status: Acute (3) Substance abuse Code(s): F19.10 - Other psychoactive substance abuse, uncomplicated Status: Acute - Plan Plan: pt improving. Continue current tx plan Justification for Continued Inpatient Stay: risk of decompensation
[2018-03-02] MEDS: Ibuprofen 400 MG Tablet PO PRN (18:24)
[2018-03-03] MEDS: Lactobacillus Acidophilus/L. Spores Tablet PO SCH ×2 (08:26→21:18)
[2018-03-03] MEDS: buPROPion 100 MG ER 12 HR Tablet PO SCH ×3 (08:26→17:56)
[2018-03-03] MEDS: amLODIPine 5 MG Tablet PO SCH ×2 (08:26→21:18)
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
[2018-03-03 17:27] VITALS: RESP 17
[2018-03-03] MEDS: Ibuprofen 400 MG Tablet PO PRN (17:56)
[2018-03-04 05:18] VITALS: BP 132/80; PULSE 57; TEMP 98.2; O2SAT 96
[2018-03-04] MEDS: amLODIPine 5 MG Tablet PO SCH (09:42)
[2018-03-04] MEDS: buPROPion 100 MG ER 12 HR Tablet PO SCH (09:42)
[2018-03-04] MEDS: Lactobacillus Acidophilus/L. Spores Tablet PO SCH (09:42)
--- NOTE | 2018-03-04 23:07 | P.DSPSY ---
Psychiatry Discharge Summary Inpatient Psychiatric care?: Yes Advance Directives: No Reason for Unknown:: Other Mental Health Advance Directive: No Health Care Proxy: No - Admission Admission Date: February 21, 2018 14:22 - Admission Diagnosis (1) Depressive disorder Code(s): F32.9 - Major depressive disorder, single episode, unspecified (2) Substance induced mood disorder Code(s): F19.94 - Other psychoactive substance use, unspecified with psychoactive substance-induced mood disorder (3) Substance abuse Code(s): F19.10 - Other psychoactive substance abuse, uncomplicated Brief History: Patient is a 52-year-old -Polish man, single, no children, domiciled alone, unemployed on SSI, with a past psychiatric history of depression, multiple psychiatric admissions, one remote suicide attempt, reports history of self-injurious behavior, with a substance use history of polysubstance use ( Debby, crack, THC, alcohol) who presented to the ED voluntarily for evaluation of depression and suicidal ideation with plan to shoot himself patient was admitted to the inpatient psychiatry for further evaluation and management. Patient was found sitting in day room noted calm and superficially cooperative with interview today. Patient noted to be somewhat irritable throughout interview. Patient state he does not feel well, reports for the past 2 weeks even having low energy, and concentration along with feeling "agitated" with no changes sleep or appetite but noticing having worsening depression for the past couple of days along with auditory hallucinations and visual hallucinations which she believes are secondary to his recent drug use. Patient reports also having suicidal ideations for the past couple of days but denying any homicidal ideation at this time. When asked about factors that contribute to distress and depression he states "I do not know". Patient states feeling interested in engaging in rehabilitation program or sober living facility. Family psychiatric history: Patient denies Past psychiatric history: Previous psychiatric diagnoses of depression, multiple psychiatric admissions, one remote suicide attempt 20 years ago via overdose, reports self-injurious behavior unspecified. Patient denies history of abuse. Patient denies having any outpatient mental provider last time being 1 year ago with previous medication trials include Risperdal, Wellbutrin and quetiapine. Substance use history: Patient reports tobacco use, alcohol use 1-2 times per week along with marijuana and crack cocaine use. When asked about other drug use patient states "I do not know". Past medical history: Hypertension, hep C, HIV Allergies: Sulfas Social history: Single, no children, domiciled alone, but on SSI, patient reports being born and raised in [place]. Tobacco Use In Past 30 Days: No How Often Do You Have a Drink Containing Alcohol: 4 or more times a week Hospital Course: Patient is a 52-year-old -Polish man, single, no children, domiciled alone, unemployed on SSI, with a past psychiatric history of depression, multiple psychiatric admissions, one remote suicide attempt, reports history of self-injurious behavior, with a substance use history of polysubstance use ( Debby, crack, THC, alcohol) who presented to the ED voluntarily for evaluation of depression and suicidal ideation with plan to shoot himself patient was admitted to the inpatient psychiatry for further evaluation and management. Patient was started on medication regimen to target symptoms which he tolerated well with minimal side effects. Patient was admitted to a locked, inpatient psychiatric unit. Appropriate precautions were in place throughout patient's hospital stay. Patient was seen and examined on the unit by psychiatry. Psychotropic medications were adjusted. There was no evidence of any further suicidality nor homicidality on the inpatient unit. Patient's psychosis improved with the benefit of psychopharmacologic treatment and had no behavioral disturbance since admission. Counselor has provided information for follow up appointments for continuity of care as patient would be traveling back to [place]. On the day of discharge: Patient seen and examined; chart reviewed. Case discussed with nurse and counselor. No behavioral issues overnight. On my examination today, the patient is agreeable to a discharge back to [place]. He denies any suicidal or homicidal ideation, intent or plan on direct questioning and contracts for safety. I can elicit no mood symptoms; denies any audiovisual hallucinations. No delusional material verbalized today. He denies any side effects from medications. He has an understanding of the medication regimen and indication. No physical complaints. Suicide and violence risk assessment on day of discharge both suggest lower imminent risk, and the patient's level of function is adequate for planned level of outpatient care. Patient has maximized benefit from this inpatient psychiatric hospital stay and will be discharged with follow-up as arranged by counselor. Patient advised to return to psychiatric emergency room for any concerning psychiatric symptoms. Patient agrees with plan. - Discharge Discharge Date: 03/04/18 - Discharge Diagnosis (1) Depressive disorder Code(s): F32.9 - Major depressive disorder, single episode, unspecified Status : Acute (2) Substance induced mood disorder Code(s): F19.94 - Other psychoactive substance use, unspecified with psychoactive substance-induced mood disorder Status: Acute (3) Substance abuse Code(s): F19.10 - Other psychoactive substance abuse, uncomplicated Status: Acute Discharge Disposition: Home - Discharge Instructions Discharge Diet: Heart Healthy Diet Activities You Can Perform: Regular- No Restrictions - Discharge Time > 30 minutes Mental Status Examination Appearance: Appropriate Consciousness: Alert Orientation: x4 Motor Activity: Normal gait Speech: Slow Language: Adequate Fund of Knowledge: Adequate Attention and Concentration: Easily distracted Memory: Unremarkable Mood: Appropriate Affect: Appropriate Thought Process & Associations: Intact Thought Content: Appropriate Hallucination Type: None Delusion Type: None Suicidal Ideation: No Suicidal Plan: No Suicidal Intention: No Homicidal Ideation: No Homicidal Plan: No Homicidal Intention: No Insight: Fair Judgment: Adequate Discharge/Advance Care Plan - Results Vital Signs: Last Vital Signs Temp 98.2 F 03/04/18 05:17 Pulse 57 L 03/04/18 05:17 Resp 17 03/04/18 05:17 BP 132/80 03/04/18 05:17 Pulse Ox 96 03/04/18 05:17 Lab Results: Laboratory Results Hemoglobin A1c 5.3 % (4.3-6.0) 02/22/18 09:23 Triglycerides 165 mg/dL (42-150) H 02/22/18 09:23 Cholesterol 130 mg/dL (120-200) 02/22/18 09:23 LDL Cholesterol, Calc 35 mg/dL (0-99) 02/22/18 09:23 HDL Cholesterol 62.1 mg/dL (40.0-60.0) H 02/22/18 09:23 TSH 0.757 uIU/mL (0.358-3.740) 02/20/18 12:20 Summary of Procedures: none Imaging: ITS Impressions Liver Ultrasound 02/24/18 00:00 CONCLUSION: 1. Echogenic liver parenchyma, mildly prominent in size. This is felt to be characteristic of hepatic steatosis. 2. Otherwise unremarkable. Pending Results: None - Medications Number of antipsychotic medications at discharge: 1 - Discharge Care Plan Goals to Promote Your Health: * To prevent worsening of your condition and complications * To maintain your health at the optimal level Directions to Meet Your Goals: Take your medications as prescribed Follow your dietary instruction Follow activity as directed Keep your appointments as scheduled Take your immunizations and boosters as scheduled If your symptoms worsen call your PCP, if no PCP go to Urgent Care Center or Emergency Room For 01/01 questions related to your inpatient stay or results of tests pending at discharge, please contact Dr. Edenilson Murphy MD at Smoking is Dangerous to Your Health. Avoid second hand smoking
== END 2018-03-04 12:35 | disposition home or self-care (01) ==
LOC: NEPD 10:51 → NEDA 02-21 14:22 → H260 02-21 16:10 → H270 02-21 18:47 → H260 02-23 18:35
PROVIDERS: ADMIT Student in an Organized Health Care Education/Training Program; ATTEND Student in an Organized Health Care Education/Training Program